=== PATIENT | male | born 1940 | race Caucasian/White ===

== ENCOUNTER 2018-05-09 15:15 | Inpatient (IN) | payer OTHER ==
[~2018-05-09] VITALS: Ht 177.8 cm; Wt 90.6 kg
[2018-05-09] MEDS ORDERED: TAMS0.4C2 PO (17:47)
[2018-05-09] MEDS ORDERED: ROSU10TA55 PO (17:47)
[2018-05-09] MEDS ORDERED: ASPI-817 PO (17:47)
[2018-05-09] MEDS ORDERED: AMLO-147 PO (17:49)
[2018-05-09] MEDS ORDERED: VIAG25 PO (17:49)
[2018-05-09] MEDS ORDERED: IRBE1TAB35 PO (17:50)
[2018-05-09] MEDS ORDERED: FUROSEMIDE 40 MG INJ IV ONE (18:30)
[2018-05-09] MEDS ORDERED: NITROGLYCERIN 2% 1 GM OINT PKT TD ONE (18:30)
[2018-05-09] MEDS ORDERED: ACETAMINOPHEN 325 MG TAB PO PRN ×2 (19:00→19:30)
[2018-05-09] MEDS ORDERED: ONDANSETRON 4 MG INJ IV PRN ×2 (19:00→19:30)
--- NOTE | 2018-05-09 19:12 | ERD ---
ER Documentation Chief Complaint Chief Complaint BIB SELF, REFERRED BY PMD FOR HTN EXACERBATION AND SOB X 2 WEEKS HPI 77-year-old male who presents the emergency room with 1 year of symptoms that include shortness of breath and peripheral edema. However over the last several weeks patient has had worsening symptoms that include PND, bilateral lower examinee edema, dyspnea on exertion only several feet. Patient is occasionally having chest discomfort. No chest discomfort currently. No fevers chills cough. ROS All systems reviewed and are negative except as per history of present illness. Medications Home Meds Reported Medications Irbesartan-Hydrochlorothiazide (Irbesartan-Hydrochlorothiazide) 300-12.5 Mg Tab, 1 EACH PO DAILY, TAB 05/09/18 Amlodipine Besylate* (Amlodipine Besylate*) 10 Mg Tablet, 10 MG PO DAILY, #30 TAB 05/09/18 Sildenafil Citrate* (Viagra*) 25 Mg Tablet, 25 MG PO DAILY, TAB TAKE 1 TAB DAILY 1HOUR BEFORE NEEDED 05/09/18 Rosuvastatin Calcium* (Crestor*) 10 Mg Tablet, 10 MG PO QHS, #30 TAB 05/09/18 Aspirin* (Aspirin* EC) 81 Mg Tablet.dr, 81 MG PO DAILY, TAB 05/09/18 Tamsulosin Hcl* (Tamsulosin Hcl*) 0.4 Mg Cap.er.24h, 0.4 MG PO HS, CAP 05/09/18 Allergies Allergies: Coded Allergies: No Known Allergy (Unverified , 05/09/18) PMhx/Soc Medical and Surgical Hx: pt denies Surgical Hx Hx Cardiac Disorders: Yes (HTN) Hx Miscellaneous Medical Probl: Yes (DM) Hx Alcohol Use: No Hx Substance Use: No Hx Tobacco Use: No Smoking Status: Never smoker FmHx Family History: No diabetes Physical Exam Vitals Vital Signs Date Temp Pulse Resp B/P (MAP) Pulse Ox O2 O2 Flow FiO2 Time Delivery Rate 05/09/18 98.5 47 23 182/75 98 Room Air 19:05 (110) 05/09/18 98.5 44 23 175/61 99 Room Air 18:24 (99) 05/09/18 48 22 196/71 99 Room Air 18:05 (112) 05/09/18 Nasal 2.0 17:45 Cannula 05/09/18 98.1 50 24 189/79 100 15:23 (115) Physical Exam General: Well developed, well nourished, no acute distress Head: Normocephalic, atraumatic. Eyes: Pupils equally reactive, EOM intact ENT: Moist mucous membranes Neck: Supple, no lymphadenopathy Respiratory: Rales at the bases bilaterally, no distress Cardiovascular: RRR, no murmurs, rubs, or gallops Abdominal: Soft, non-tender, non-distended, no peritoneal signs : Deferred MSK: Bilateral lower extremity pitting edema, no unilateral swelling, 5/5 strength Neurologic: Alert and oriented, moving all extremities, normal speech, no focal weakness, no cerebellar signs Skin: No rash Psych: Normal mood Result Diagram: 05/09/18 1737 05/09/18 1737 Results 24 hrs Laboratory Tests Test 05/09/18 17:37 White Blood Count 6.7 10^3/ul Red Blood Count 3.70 10^6/ul Hemoglobin 11.9 g/dl Hematocrit 34.4 % Mean Corpuscular Volume 93.0 fl Mean Corpuscular Hemoglobin 32.2 pg Mean Corpuscular Hemoglobin Concent 34.6 g/dl Red Cell Distribution Width 13.2 % Platelet Count 205 10^3/UL Mean Platelet Volume 9.9 fl Immature Granulocytes % 0.300 % Neutrophils % 77.7 % Lymphocytes % 14.4 % Monocytes % 6.2 % Eosinophils % 1.0 % Basophils % 0.4 % Nucleated Red Blood Cells % 0.0 /100WBC Immature Granulocytes # 0.020 10^3/ul Neutrophils # 5.2 10^3/ul Lymphocytes # 1.0 10^3/ul Monocytes # 0.4 10^3/ul Eosinophils # 0.1 10^3/ul Basophils # 0.0 10^3/ul Nucleated Red Blood Cells # 0.0 10^3/ul Prothrombin Time 12.6 Sec Prothrombin Time Ratio 1.0 INR International Normalized Ratio 0.93 Activated Partial Thromboplast Time 30.9 Sec Sodium Level 135 mmol/L Potassium Level 4.2 mmol/L Chloride Level 102 mmol/L Carbon Dioxide Level 24 mmol/L Anion Gap 9 Blood Urea Nitrogen 16 mg/dl Creatinine 0.75 mg/dl Est Glomerular Filtrat Rate mL/min mL/min Glucose Level 196 mg/dl Calcium Level 9.5 mg/dl Total Bilirubin 1.1 mg/dl Direct Bilirubin 0.00 mg/dl Indirect Bilirubin 1.1 mg/dl Aspartate Amino Transf (AST/SGOT) 30 IU/L Alanine Aminotransferase (ALT/SGPT) 37 IU/L Alkaline Phosphatase 78 IU/L Troponin I 0.024 ng/ml B-Type Natriuretic Peptide 1190 PG/ML Total Protein 7.6 g/dl Albumin 4.4 g/dl Globulin 3.20 g/dl Albumin/Globulin Ratio 1.37 Current Medications Medications Dose Sig/Georgie Start Time Status Last (Trade) Ordered Route PRN Stop Time Admin Dose Reason Admin 1 inch ONCE ONCE 05/09/18 DC 05/09/18 Nitroglycerin TD 18:30 05/09/18 18:34 18:31 (Nitroglyceri n 2% Oint) Furosemide 40 mg ONCE ONCE 05/09/18 DC 05/09/18 (Lasix) IV 18:30 05/09/18 18:33 18:31 Ondansetron 4 mg ER BRIDGE 05/09/18 HCl (Zofran PRN IV 19:00 05/10/18 Inj) NAUSEA/VOMITI 18:59 NG 650 mg ER BRIDGE 05/09/18 Acetaminophen PRN PO 19:00 05/10/18 (Tylenol .MILD PAIN 18:59 Tab) 1-3 OR TEMP IV Flush 3 ml PER 05/09/18 UNV (NS 3 ml) PROTOCOL IV 19:30 Ondansetron 4 mg Q6H PRN 05/09/18 UNV HCl (Zofran IV 19:30 Inj) NAUSEA/VOMITI NG 650 mg Q6H PRN 05/09/18 UNV Acetaminophen PO .PAIN 1-3 19:30 (Tylenol OR TEMP Tab) Enoxaparin 40 mg DAILY SC 05/10/18 UNV Sodium 09:00 (Lovenox) Procedures/MDM EKG, MONITORS, & DIAGNOSTIC IMAGING: EKG: I reviewed and interpreted a 12-lead EKG. Rhythm: Normal sinus rhythm ST Changes: No contiguous ST segment elevations T waves: No contiguous T wave inversions Impression: [No evidence of acute cardiac ischemia] Chest x-ray: I reviewed and interpreted a 1 view of the chest Mediastinum: No enlargement Cardiac silhouette: cardiomegaly Airspace: Interstitial process consistent with pulmonary edema Bones: No evidence of fracture LAB INTERPRETATION: * Elevated BNP, negative troponin MEDICAL DECISION MAKING: signs and symptoms consistent with new onset congestive heart failure likely secondary to poorly controlled Hypertension. The patient's blood pressure is regularly in the 180s per family members. This is a subacute and chronic issue however the patient's CHF type symptoms are worse in the last several weeks. He is having chest pain as well. Inpatient hospitalization for volume management, echocardiogram and initiation of medications as needed for CHF diagnosis. ER COURSE: * Patient was given aspirin, nitroglycerin, Lasix no indication for nitro drip, positive pressure ventilation. * Patient is hemodynamically stable at this time. Avoid rapidly lowering the patient's blood pressure given chronicity of hypertension CONSULTATION: [None] DISPOSITION PLAN: Accepting care team and consultations: I discussed the current laboratory data, diagnostic imaging and emergency care provided. Admitting team: Dr. Goddard Admitting team indication: Insurance directed Departure Diagnosis: Primary Impression: New onset of congestive heart failure Additional Impression: Hypertensive urgency Condition: Stable EARL LEE MD May 09, 2018 19:12
--- NOTE | 2018-05-09 19:23 | HP ---
Date/Time of Note Date/Time of Note DATE: 05/09/18 TIME: 19:12 Assessment/Plan VTE Prophylaxis SCD applied (from Nsg): Yes Pharmacological prophylaxis: NA/contraindicated Pharm contraindication: low risk/ambulating Lines/Catheters IV Catheter Type (from Nrsg): Saline Lock Assessment/Plan Assessment/Plan 77 yo man history of HTN presents with dyspnea, new onset CHF and complete heart block. #New onset CHF #HTN #Dyspnea - Hypertensive to 190s systolic - Fluid overloaded on exam with elevated BNP. However no significant pulmonary edema. - Continue oral antihypertensives, titrate up - prn hydralazine - IV diuresis with lasix 40 BID - Will check echo - Consult Dr. Copeland #Complete heart block #Right bundle branch block - Continue current dose of AV node blockers but will not add more and not titrate up. - Consult Dr. Copeland. DVT: SCDs GI: None Result Diagram: 05/09/18173605/09/181736 HPI/ROS Admit Date/Time Admit Date/Time May 09, 2018 Hx of Present Illness Mr. Garcia is a 77 yo man with history of HTN who presents with dyspnea. He was in his usual state of health until about the last two months when he noticed gradual progressive onset dyspnea on exertion. This has worsened and today he was unable to catch his breath at rest, so he presented to the ED. He also reports chronic aching low back pain with ambulation. He has had hypertension for several years and reports compliance with all meds. Never been hospitalized, no known heart problems. In the ED he was afebrile. BP 196/71, P 50s, sat 99% RA. EKG showed complete heart block, atrial rate 150s, ventricular rate 50s. BNP 1100. Trop 0.024. ROS Denies fever, chills, weight loss, night sweats, headache, vision changes, dysphagia, PND, orthopnea, cough, chest pain/pressure/palpitations, nausea, vomiting, abdominal pain, diarrhea, constipation, dysuria, hematuria, LE edema. PMH/Family/Social Past Medical History HTN erectile dysfunction dyslipidemia Medications Current Medications Ondansetron HCl (Zofran Inj) 4 mg ER BRIDGE PRN IV NAUSEA/VOMITING; Start 05/09 at 19:00; Stop 05/10/18 at 18:59 Acetaminophen (Tylenol Tab) 650 mg ER BRIDGE PRN PO .MILD PAIN 1-3 OR TEMP; Start 05/09/18 at 19:00; Stop 05/10/18 at 18:59 IV Flush (NS 3 ml) 3 ml PER PROTOCOL IV ; Start 05/09/18 at 19:30; Status UNV Ondansetron HCl (Zofran Inj) 4 mg Q6H PRN IV NAUSEA/VOMITING; Start 05/09/18 at 19:30; Status UNV Acetaminophen (Tylenol Tab) 650 mg Q6H PRN PO .PAIN 1-3 OR TEMP; Start 05/09/18 at 19:30; Status UNV Enoxaparin Sodium (Lovenox) 40 mg DAILY SC ; Start 05/10/18 at 09:00; Status UNV Amlodipine Besylate (Norvasc) 10 mg DAILY PO ; Start 05/10/18 at 09:00; Status UNV Aspirin (Halfprin) 81 mg DAILY PO ; Start 05/10/18 at 09:00; Status UNV Tamsulosin HCl (Flomax) 0.4 mg HS PO ; Start 05/09/18 at 21:00; Status UNV Miscellaneous Information 1 each DAILY PO ; Start 05/10/18 at 09:00; Status UNV Miscellaneous Information 10 mg QHS PO ; Start 05/09/18 at 21:00; Status UNV Furosemide (Lasix) 40 mg BID DIURETICS IV ; Start 05/09/18 at 19:30; Status UNV Coded Allergies: No Known Allergy (Unverified , 05/09/18) Past Surgical History Denies Social History Lives in house with son. [place]. Alcohol Use: occasionally (4-5 tequila shots per week) Smoking Status: Never smoker Drug Use: none Exam/Review of Systems Vital Signs Vitals Vital Signs Date Temp Pulse Resp B/P (MAP) Pulse Ox O2 O2 Flow FiO2 Time Delivery Rate 05/09/18 98.5 47 23 182/75 98 Room Air 19:05 (110) 05/09/18 2.0 17:45 Exam Exam Gen: Obese man slightly tachypneic on room air otherwise in no distress. Eyes: PERRL, no icterus. HEENT: Clear oropharynx, moist mucous membranes. Rhinophyma. Neck: Cannot appreciate JV. No lymphadenopathy Card: Darius, no murmurs appreciated Pulm: Clear to auscultation bilaterally. Abd: Soft, nontender, nondistended. Ext: No cyanosis/clubbing/edema Skin: warm, dry, well perfused KAYLAN GOMEZ MD May 09, 2018 19:23
[2018-05-09] MEDS ORDERED: hydrALAzine 20 MG INJ IV PRN (19:30)
[2018-05-09] MEDS ORDERED: ASPIRIN 81 MG TAB PO ONE (19:30)
[2018-05-09] MEDS ORDERED: NACL 0.9% 3 ML SYG IV SCH (19:30)
[2018-05-09 20:30] VITALS: BP 192/89; PULSE 47; RESP 19
[2018-05-09 20:35] VITALS: BP 185/95; PULSE 47
[2018-05-09] MEDS ORDERED: ROSUVASTATIN 10 MG TAB PO SCH (21:00)
[2018-05-09] MEDS: ATORVASTATIN 40 MG TAB PO SCH ×2 (22:18→22:29)
[2018-05-09] MEDS: FUROSEMIDE 40 MG INJ IV SCH (22:18)
[2018-05-09] MEDS: TAMSULOSIN (SR) 0.4 MG CAP PO SCH ×2 (22:18→22:29)
[2018-05-09 23:06] VITALS: Ht 177.8 cm; Wt 90.6 kg
[2018-05-09 23:51] VITALS: BP 151/68; PULSE 50; RESP 19
[2018-05-10] VITALS (12 sets, daily range): BP systolic 127–199; BP diastolic 58–81; PULSE 43–75; RESP 16–20
[2018-05-10] MEDS ORDERED: ATROPINE 1 MG/10 ML SYRINGE IV ONE (03:00)
[2018-05-10] MEDS: FUROSEMIDE 40 MG INJ IV SCH ×2 (06:32→17:59)
[2018-05-10] MEDS: AMLODIPINE 10 MG TAB PO SCH (08:26)
[2018-05-10] MEDS: ASPIRIN (EC) 81 MG TAB PO SCH (08:26)
[2018-05-10] MEDS ORDERED: NON-FORMULARY/PATIENT OWN MED (Irbesartan-Hydrochlorothiazide 1 EACH) PO SCH (09:00)
[2018-05-10] MEDS ORDERED: HYDROCHLOROTHIAZIDE 12.5 MG CAP PO SCH (09:30)
[2018-05-10] MEDS: ENOXAPARIN 40 MG/0.4 ML SYG SC SCH (09:37)
[2018-05-10] MEDS: LOSARTAN 50 MG TAB PO SCH (10:39)
--- NOTE | 2018-05-10 16:04 | CONS ---
DATE OF ADMISSION: 05/09/2018 DATE OF CONSULTATION: 05/10/2018 TYPE OF CONSULTATION: Cardiology. REASON FOR CONSULTATION: Heart block, shortness of breath. REQUESTING PHYSICIAN: Kaylan Goddard MD, from the hospitalist service. HISTORY OF PRESENT ILLNESS: Mr. Richards is a very pleasant 77-year-old male with a histor y of hypertension, dyslipidemia, BPH, diabetes mellitus, who presented with complaints of dyspnea on exertion times approximately 2 weeks. Additionally, the patient complains of mild lower extremity ed kya and possible occasional chest pain. Upon arrival, temperature of 98.1, blood pressure 189/79, pu lse 50, respiratory rate 24, satting 100%. The patient's labs were notable for a sodium of 135, pota ssium 4.2, creatinine 0.75, BUN of 16, AST 30, ALT 37. Troponin negative. BNP of 1190. TSH of 3.0. INR 0.93. The patient underwent a chest x-ray revealing no acute cardiopulmonary abnormalities. T he patient's electrocardiogram revealed a borderline sinus tachycardia with episodes of 2:1 AV block and possible episodes of complete heart block additionally with likely a junctional escape around 50 with a right bundle branch block pattern secondary repolarization abnormalities and left anterior fas cicular block. The patient was subsequently admitted to the floor and since admit to floor has had s ome decreasing heart rates down to the low 40s and possibly even high 30s. The patient continues to have significantly elevated systolic blood pressures as high as 190. The patient denies chest pain a t this time. PAST MEDICAL HISTORY: As above in HPI with the patient is denying any previous history of syncope an d dizziness. MEDICATIONS CURRENTLY IN HOSPITAL; 1. Losartan 100 mg daily. 2. Hydrochlorothiazide 12.5 mg daily. 3. Lovenox 40 mg subcutaneous daily. 4. Norvasc 10 mg daily. 5. Aspirin 81 mg daily. 6. Flomax 0.4 mg at bedtime. 7. Lipitor 40 mg at bedtime. 8. Zofran p.r.n. 9. Tylenol p.r.n. 10. Lasix 40 mg IV b.i.d. 11. Hydralazine 10 mg IV push q.4 p.r.n. ALLERGIES: NO KNOWN DRUG ALLERGIES. SOCIAL HISTORY: No current tobacco, quit x40 years. Positive EtOH. No illicit drug use. FAMILY HISTORY: No history of sudden cardiac or early CAD. REVIEW OF SYSTEMS: As above in HPI. CONSTITUTIONAL: No fevers, chills. PULMONARY: Shortness of breath. CARDIOVASCULAR: No current chest pain, but chest pain reported on admit. GASTROINTESTINAL: No vomiting. GENITOURINARY: No hematuria. MUSCULOSKELETAL: Degenerative joint disease. PSYCHIATRIC: The patient denies depression. NEUROLOGIC: No documented history of CVA. ENDOCRINE: No documented history of diabetes mellitus. PHYSICAL EXAMINATION: VITAL SIGNS: Temperature of 98.6, blood pressure 189/81, pulse 56, respiratory rate 16, satting 96%. GENERAL: The patient is alert, awake, in no acute distress. NECK: JVP is approximately 8 to 9 cm of water. CHEST: Decreased breath sounds at bases bilaterally. HEART: Bradycardic, regular rhythm, normal S1, S2, I/ systolic murmur. ABDOMEN: Positive bowel sounds, soft. EXTREMITIES: No significant pitting edema, 1+ pulses bilateral posterior tibial. LABORATORIES: Most recently from today, sodium 136, potassium 3.7, creatinine 0.8, BUN 15. LDL 167, HDL 40. Troponin negative x3. IMAGING STUDIES: As above in HPI. No further imaging studies for my review at this time. ELECTROCARDIOGRAM: As above in HPI. No further electrocardiograms for my review at this time. IMPRESSION: 1. Heart block with a subsequent likely symptomatic bradycardia with episodes of 2:1 atrioventricula r block and then additionally likely associated complete heart block at times as well with likely sierra ctional escape rhythm around 50 to the 40s. 2. Shortness of breath, dyspnea on exertion, likely due to chronotropic incompetence and heart block . 3. Chest pain, assess for acute coronary syndrome. 4. Hypertension, severely elevated, uncontrolled. 5. Benign prostatic hypertrophy. 6. Elevated BNP. Assess for congestive heart failure. 7. Anemia. RECOMMENDATIONS: 1. At this time, we would maintain the patient on telemetry monitoring to follow rhythm and rate con trol closely. 2. We would continue the patient's antihypertensives with losartan, Norvasc, hydrochlorothiazide and we will add additionally vasodilating medications with hydralazine standing. 3. Avoid any reyna agents given bradycardia. 4. We will check a 2D echo for this patient's ejection fraction, wall motion or any major valve abno rmalities. 5. The patient is status post a negative troponin x3, ruling out for acute myocardial infarction. 6. Consider stress testing in this patient, although not likely etiology of patient's heart block as he has evidence of conduction system disease on EKG previously. 7. Probable need for permanent pacemaker implantation. We will follow rhythm and improve blood pres sure and assess the patient's ongoing symptomatology as well as ongoing heart block. Thank you for allowing me to take part in the care of this patient. I will continue to follow him ve ry closely with you with further recommendations to be made as the [facility]. Dictated By: KAYLAN LAZAR/ROZINA Conf#: [id number] DID#: [id number] CC: KAYLAN GODDARD MD;*End*
--- NOTE | 2018-05-10 17:37 | PN ---
Date/Time of Note Date/Time of Note DATE: 05/10/18 TIME: 17:31 Assessment/Plan VTE Prophylaxis Risk score (from Ns)>0 risk: 5 SCD applied (from Ns): No SCD contraindicated: other (not contraindicated) Pharmacological prophylaxis: LMWH Lines/Catheters [facility] Saline Lock Urinary Cath still in place: No Assessment/Plan Assessment/Plan 77 yo man history of HTN presents with dyspnea, new onset CHF and complete heart block. #New onset CHF #HTN #Dyspnea - Hypertensive to 190s systolic - Fluid overloaded on exam with elevated BNP. However no significant pulmonary edema. - Continue oral antihypertensives, titrate up - prn hydralazine - IV diuresis with lasix 80 BID - Will check echo - Consulted Dr. Copeland #Complete heart block #Right bundle branch block - Stopping beta blockers - Consult Dr. Copeland. - May require PPM DVT: SCDs GI: None Result Diagram: 05/10/18 0559 05/10/18 0559 Subjective 24 Hr Interval Summary Free Text/Dictation No acute overnight events. Still with mild shortness of breath. [id number] at bedside, I updated them with the plan. On tele, remains in complete heart block with ventricular rate 40s-50s. Exam/Review of Systems Exam Vitals Vital Signs Date Temp Pulse Resp B/P (MAP) Pulse Ox O2 O2 Flow FiO2 Time Delivery Rate 05/10/18 43 16:47 05/10/18 98.5 17 180/78 98 15:26 (112) 05/10/18 Room Air 03:37 05/09/18 2.0 17:45 Intake and Output 05/09/18 05/09/18 05/10/18 1515:00 23:00 07:00 IntakeIntake Total 540 ml OutputOutput Total 900 ml BalanceBalance -360 ml Exam Gen: Obese man slightly tachypneic on room air otherwise in no distress. Eyes: PERRL, no icterus. HEENT: Clear oropharynx, moist mucous membranes. Rhinophyma. Neck: Cannot appreciate JV. No lymphadenopathy Card: Adrius, no murmurs appreciated Pulm: Clear to auscultation bilaterally. Abd: Soft, nontender, nondistended. Ext: No cyanosis/clubbing/edema Skin: warm, dry, well perfused Medications Medication Current Medications IV Flush (NS 3 ml) 3 ml PER PROTOCOL IV ; Start 05/09/18 at 19:30 Ondansetron HCl (Zofran Inj) 4 mg Q6H PRN IV NAUSEA/VOMITING; Start 05/09/18 at 19:30 Acetaminophen (Tylenol Tab) 650 mg Q6H PRN PO .PAIN 1-3 OR TEMP; Start 05/09/18 at 19:30 Enoxaparin Sodium (Lovenox) 40 mg DAILY SC Last administered on 05/10/18 09:37; Admin Dose 40 MG; Start 05/10/18 at 09:00 Amlodipine Besylate (Norvasc) 10 mg DAILY PO Last administered on 05/10/18 08:26; Admin Dose 10 MG; Start 05/10/18 at 09:00 Aspirin (Halfprin) 81 mg DAILY PO Last administered on 05/10/18 08:26; Admin Dose 81 MG; Start 05/10/18 at 09:00 Tamsulosin HCl (Flomax) 0.4 mg HS PO Last administered on 05/09/18 22:29; Admin Dose 0.4 MG; Start 05/09/18 at 21:00 Hydralazine HCl (Apresoline) 10 mg Q4H PRN IV SBP>190 Last administered on 05/10/18 08:30; Admin Dose 10 MG; Start 05/09/18 at 19:30 Atorvastatin Calcium (Lipitor) 40 mg DAILY@21 PO Last administered on 05/09/18 22:29; Admin Dose 40 MG; Start 05/09/18 at 21:00 Influenza Virus Vaccine Quadrival (Fluzone) 0.5 ml ONCE ONCE IM* ; Start 05/11/18 at 10:00; Stop 05/11/18 at 10:01 Losartan Potassium (Cozaar) 100 mg DAILY PO Last administered on 05/10/18 10:39; Admin Dose 100 MG; Start 05/10/18 at 09:30 Hydrochlorothiazide (Hydrochlorothiazide) 25 mg DAILY PO ; Start 05/11/18 at 09:00 Hydralazine HCl (Apresoline) 50 mg Q8 PO Last administered on 05/10/18 16:06; Admin Dose 50 MG; Start 05/10/18 at 15:30 Furosemide (Lasix) 80 mg BID DIURETICS IV ; Start 05/10/18 at 18:00 KAYLAN GOMEZ MD May 10, 2018 17:37
--- NOTE | 2018-05-10 18:33 | RADRPT ---
Echocardiogram Report Patient Name: AGUSTINA MARTINatipage ID: [id number] : 1940 (77y 5m)Study Date: 05/10/2018 8:31:12 AM Gender: MAccession #: [id number] Tech: Oli Smith [facility] Location: 1-A Ref.Physician: KAYLAN GOMEZ Height(Cm): BSA: Weight(Kg): Quality: AdequateAccount #: Procedures: Echocardiographic Report: Transthoracic echocardiogram with complete 2D, M-Mode, and doppler examination. Indications: New Congestive Heart Failure. Measurements: 2D/M Mode Doppler Measurement Value Normal Range Measurement Value Normal Range LVIDd 2D 4.0 [ 4.2 - 5.8 ] cm RENAN Vmax 2.3 [ 2.0 - 4.0 ] cm2 LVIDs 2D 2.9 [ 2.5 - 4.0 ] cm RENAN VTI 2.4 [ 2.0 - 4.0 ] cm2 LVPWd 2D 1.7 [ 0.6 - 1.0 ] cm AV Mean Diego 1.4 [ 70.0 - 90.0 ] cm/sec IVSd 2D 1.8 [ 0.6 - 1.0 ] cm AV Mean PG 9.0 [ 2.0 - 4.0 ] mmHg IVS/LVPW 2D 1.1 ratio AV Peak Diego 2.3 [ 100.0 - 170.0 ] cm/sec AoR Diam 2D 3.4 [ 2.6 - 3.4 ] cm AV Peak PG 22.0 [ 2.0 - 9.0 ] mmHg LA/Ao 2D 1 ratio AV VTI 48.8 cm LA Dimen 2D 4.7 [ 3.0 - 4.0 ] cm LVOT Mean Diego 1.0 [ 60.0 - 80.0 ] cm/sec LVOT Diam 2.0 [ 2.3 - 2.9 ] cm LVOT Mean PG 5.0 [ 1.0 - 3.0 ] mmHg LVOT Area 3.1 cm2 LVOT Peak Diego 1.7 [ 70.0 - 110.0 ] cm/sec LVOT Peak PG 12.0 [ 2.0 - 6.0 ] mmHg LVOT VTI 37.4 [ 20.0 - 30.0 ] cm MV E Peak Diego 1.9 [ 60.0 - 130.0 ] cm/sec MV A Peak Diego 2.2 [ 100.0 - 120.0 ] cm/sec MV E/A 0.9 [ 0.8 - 1.5 ] ratio MV Decel Time 317 [ 104 - 258 ] msec MV E/A 0.9 [ 0.8 - 1.5 ] ratio TR Peak Diego 3.0 [ 100.0 - 280.0 ] cm/sec TR Peak PG 37.0 mmHg RVSP 40.0 [ 10.0 - 36.0 ] mmHg Findings: Left Ventricle: Normal left ventricular systolic function. Normal left ventricular cavity size. Severe concentric left ventricular hypertrophy. Ejection fraction is visually estimated at 65 %. Right Ventricle: Normal right ventricular size. Normal right ventricular systolic function. Left Atrium: There is moderate enlargement of left atrium. Right Atrium: The right atrium is normal in size. Mitral Valve: Moderate mitral leaflet calcification. Moderate mitral annular calcification. Trace mitral regurgitation. Mild to moderate mitral stenosis. Mitral valve Max Velocity 2.51 m/sec. MaxPG 25.00 mmHg. MeanPG 8.00 mmHg. Mitral Valve Area by PHT 2.20 cm2. Aortic Valve: No significant aortic stenosis or insufficiency. Aortic sclerosis without significant stenosis. Tricuspid Valve: Normal appearance of the tricuspid valve. Estimated peak PA systolic pressure 40 mmHg. There is mild tricuspid regurgitation. Pulmonic Valve: Pulmonic valve not well visualized. There is trace pulmonic regurgitation. Pericardium: Normal pericardium with no significant pericardial effusion. Aorta: Normal aortic root. IVC: Normal size and normal respiratory collapse consistent with normal right atrial pressure. Conclusions: Normal left ventricular systolic function. Normal left ventricular cavity size. Severe concentric left ventricular hypertrophy. Ejection fraction is visually estimated at 65 %. There is moderate enlargement of left atrium. Moderate mitral leaflet calcification. Moderate mitral annular calcification. Trace mitral regurgitation. Mild to moderate mitral stenosis. Mitral valve Max Velocity 2.51 m/sec. MaxPG 25.00 mmHg. MeanPG 8.00 mmHg. Mitral Valve Area by PHT 2.20 cm2. Normal appearance of the tricuspid valve. Estimated peak PA systolic pressure 40 mmHg. There is mild tricuspid regurgitation. Pulmonic valve not well visualized. There is trace pulmonic regurgitation. Electronically Signed By: Kaylan Copeland 2018-05-10 18:32:52 PST
[2018-05-10] MEDS: TAMSULOSIN (SR) 0.4 MG CAP PO SCH (20:37)
[2018-05-10] MEDS: ATORVASTATIN 40 MG TAB PO SCH (20:37)
[2018-05-11] VITALS (10 sets, daily range): BP systolic 103–174; BP diastolic 47–74; PULSE 42–51; RESP 18–22
[2018-05-11] MEDS: FUROSEMIDE 40 MG INJ IV SCH (06:09)
[2018-05-11] MEDS: LOSARTAN 50 MG TAB PO SCH (08:53)
[2018-05-11] MEDS: AMLODIPINE 10 MG TAB PO SCH (08:53)
[2018-05-11] MEDS: ASPIRIN (EC) 81 MG TAB PO SCH (08:54)
[2018-05-11] MEDS: ENOXAPARIN 40 MG/0.4 ML SYG SC SCH (09:00)
[2018-05-11] MEDS ORDERED: HYDROCHLOROTHIAZIDE 25 MG TAB PO SCH (09:00)
--- NOTE | 2018-05-11 11:52 | PN ---
Date/Time of Note Date/Time of Note DATE: 05/11/18 TIME: 11:48 Assessment/Plan VTE Prophylaxis Risk score (from Ns)>0 risk: 4 SCD applied (from Ns): No SCD contraindicated: low risk/ambulating Pharmacological prophylaxis: LMWH Lines/Catheters IV Catheter Type (from Nrs): Saline Lock Urinary Cath still in place: No Assessment/Plan Assessment/Plan 77 yo man history of HTN presents with dyspnea, new onset CHF and complete heart block. #New onset CHF #HTN #Dyspnea - Hypertensive to 190s systolic - Now euvolemic s/p diuresis. Stopping lasix - Still very hypertensive. Will continue to hold beta emelia, continue to titrate up hydralazine, norvasc (max), HCTZ. Added isosorbide. - prn hydralazine - echo 60-65%, no wall motion abnormalities - Consulted Dr. Copeland #ARPITA - May be due to overaggressive diuresis - Will hold ARB/ACEi - Repeat in AM. #Complete heart block #Right bundle branch block - Stopped beta blockers - Consult Dr. Copeland. - Escape rate is persistently >40. No urgency for PPM this admission. DVT: SCDs GI: None Dispo: Monitor antoher 24-48 hours in the setting of ARPITA and uncontrollable HTN. Result Diagram: 05/11/18 1025 05/11/18 1025 Subjective 24 Hr Interval Summary Free Text/Dictation No acute overnight events. Patient reports SOB is improving; now ambulatory in the hallways. Exam/Review of Systems Exam Vitals Vital Signs Date Temp Pulse Resp B/P (MAP) Pulse Ox O2 O2 Flow FiO2 Time Delivery Rate 05/11/18 97.9 49 18 173/74 94 11:26 (107) 05/10/18 Room Air 03:37 05/09/18 2.0 17:45 Intake and Output 05/10/18 05/10/18 05/11/18 1515:00 23:00 07:00 IntakeIntake Total 400 ml 120 ml OutputOutput Total 700 ml 900 ml BalanceBalance -300 ml -780 ml Exam Gen: Obese man breathing comfortably on room air otherwise in no distress. Eyes: PERRL, no icterus. HEENT: Clear oropharynx, moist mucous membranes. Rhinophyma. Neck: Cannot appreciate JV. No lymphadenopathy Card: Darius, no murmurs appreciated Pulm: Clear to auscultation bilaterally. Abd: Soft, nontender, nondistended. Ext: No cyanosis/clubbing/edema Skin: warm, dry, well perfused Medications Medication Current Medications IV Flush (NS 3 ml) 3 ml PER PROTOCOL IV ; Start 05/09/18 at 19:30 Ondansetron HCl (Zofran Inj) 4 mg Q6H PRN IV NAUSEA/VOMITING; Start 05/09/18 at 19:30 Acetaminophen (Tylenol Tab) 650 mg Q6H PRN PO .PAIN 1-3 OR TEMP; Start 05/09/18 at 19:30 Enoxaparin Sodium (Lovenox) 40 mg DAILY SC Last administered on 05/11/18 09:00; Admin Dose 40 MG; Start 05/10/18 at 09:00 Amlodipine Besylate (Norvasc) 10 mg DAILY PO Last administered on 05/11/18 08:53; Admin Dose 10 MG; Start 05/10/18 at 09:00 Aspirin (Halfprin) 81 mg DAILY PO Last administered on 05/11/18 08:54; Admin Dose 81 MG; Start 05/10/18 at 09:00 Tamsulosin HCl (Flomax) 0.4 mg HS PO Last administered on 05/10/18 20:37; Admin Dose 0.4 MG; Start 05/09/18 at 21:00 Hydralazine HCl (Apresoline) 10 mg Q4H PRN IV SBP>190 Last administered on 05/10/18 08:30; Admin Dose 10 MG; Start 05/09/18 at 19:30 Atorvastatin Calcium (Lipitor) 40 mg DAILY@21 PO Last administered on 05/10/18 20:37; Admin Dose 40 MG; Start 05/09/18 at 21:00 Losartan Potassium (Cozaar) 100 mg DAILY PO Last administered on 05/11/18 08:53; Admin Dose 100 MG; Start 05/10/18 at 09:30; Status Hold Hydralazine HCl (Apresoline) 100 mg Q8 PO ; Start 05/11/18 at 14:00 Hydrochlorothiazide (Hydrochlorothiazide) 50 mg DAILY PO ; Start 05/12/18 at 09:00; Status KAYLAN BOB MD May 11, 2018 11:52
--- NOTE | 2018-05-11 13:04 | CONS ---
Assessment/Plan Assessment/Plan Hospital Course (Demo Recall) IMPRESSION: 1. Heart block with a subsequent likely symptomatic bradycardia with episodes of 2:1 atrioventricular block and then additionally likely associated complete heart block at times as well with likely junctional escape rhythm around 50 to the 40s. 2. Shortness of breath, dyspnea on exertion, likely due to chronotropic incompetence and heart block. NLl EF by echo 60-65% 3. Chest pain, assess for acute coronary syndrome.-resolved. Neg trop x 3 4. Hypertension-remains elevated 5. Benign prostatic hypertrophy. 6. Elevated BNP. Assess for congestive heart failure. 7. Anemia. 8. ARF-likley due to overdiuresis Recc: -Tele -Follow HR closely. No reyna agents -Spoke with patient/family about PPM which they say they would like to avoid as possible and use only as last resort. Thus as currently no syncope/dizziness/actually elevated BP will continue to follow -Agree with uptitrate of antihypertensives to improve HR control - Agree with d/c of lasix and follow isolation washer/volume status with possible need for even gentle hydration -Continue asa/statin -Continue hydralazine/imdur Consultation Date/Type/Reason Admit Date/Time May 09, 2018 at 18:42 Initial Consult Date 05/09/18 Type of Consult Cardiology Reason for Consultation heart block Requesting Provider: KAYLAN GOMEZ MD Date/Time of Note DATE: 05/11/18 TIME: 12:55 Exam/Review of Systems Vital Signs Vitals Vital Signs Date Temp Pulse Resp B/P (MAP) Pulse Ox O2 O2 Flow FiO2 Time Delivery Rate 05/11/18 46 12:16 05/11/18 97.9 18 173/74 94 11:26 (107) 05/10/18 Room Air 03:37 05/09/18 2.0 17:45 Intake and Output 05/10/18 05/10/18 05/11/18 1414:59 22:59 06:59 IntakeIntake Total 400 ml 120 ml OutputOutput Total 700 ml 900 ml BalanceBalance -300 ml -780 ml Exam Exam Review of Systems: CONSTITUTIONAL: No fevers, chills. PULMONARY: No sob CARDIOVASCULAR: No chest pain/palpitations GASTROINTESTINAL: No nausea/vomiting. GENITOURINARY: No hematuria/dysuria. MUSCULOSKELETAL: No myagias/arthalgias. PSYCHIATRIC: The patient denies depression. NEUROLOGIC: No weakness Constitutional: alert, oriented Psych: no complaints Head: normocephalic ENMT: mucosa pink and moist Neck: supple, jvd (9 cm water) Respiratory: diminished breath sounds Cardiovascular: other (bradycardic) Gastrointestinal: soft, non-tender Musculoskeletal: muscle tone (normal) Extremities: edema (none) 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: other (No focal deficits) Labs Result Diagram: 05/11/18 1025 05/11/18 1025 Results 24hrs Laboratory Tests Test 05/11/18 10:25 White Blood Count 5.4 Red Blood Count 3.74 L Hemoglobin 12.0 L Hematocrit 34.0 L Mean Corpuscular Volume 90.9 Mean Corpuscular Hemoglobin 32.1 Mean Corpuscular Hemoglobin Concent 35.3 Red Cell Distribution Width 13.2 Platelet Count 208 Mean Platelet Volume 9.9 Immature Granulocytes % 0.200 Neutrophils % 74.9 Lymphocytes % 14.9 L Monocytes % 7.0 Eosinophils % 2.6 Basophils % 0.4 Nucleated Red Blood Cells % 0.0 Immature Granulocytes # 0.010 Neutrophils # 4.1 Lymphocytes # 0.8 Monocytes # 0.4 Eosinophils # 0.1 Basophils # 0.0 Nucleated Red Blood Cells # 0.0 Sodium Level 135 Potassium Level 3.6 Chloride Level 96 L Carbon Dioxide Level 26 Anion Gap 13 # Blood Urea Nitrogen 25 H Creatinine 1.72 H Est Glomerular Filtrat Rate mL/min Glucose Level 195 Calcium Level 9.3 Phosphorus Level 5.9 H Magnesium Level 1.8 Medications Medications Current Medications IV Flush (NS 3 ml) 3 ml PER PROTOCOL IV ; Start 05/09/18 at 19:30 Ondansetron HCl (Zofran Inj) 4 mg Q6H PRN IV NAUSEA/VOMITING; Start 05/09/18 at 19:30 Acetaminophen (Tylenol Tab) 650 mg Q6H PRN PO .PAIN 1-3 OR TEMP; Start 05/09/18 at 19:30 Enoxaparin Sodium (Lovenox) 40 mg DAILY SC Last administered on 05/11/18at 09:00; Admin Dose 40 MG; Start 05/10/18 at 09:00 Amlodipine Besylate (Norvasc) 10 mg DAILY PO Last administered on 05/11/18at 08:53; Admin Dose 10 MG; Start 05/10/18 at 09:00 Aspirin (Halfprin) 81 mg DAILY PO Last administered on 05/11/18 08:54; Admin Dose 81 MG; Start 05/10/18 at 09:00 Tamsulosin HCl (Flomax) 0.4 mg HS PO Last administered on 05/10/18 20:37; Admin Dose 0.4 MG; Start 05/09/18 at 21:00 Hydralazine HCl (Apresoline) 10 mg Q4H PRN IV SBP>190 Last administered on 05/10/18 08:30; Admin Dose 10 MG; Start 05/09/18 at 19:30 Atorvastatin Calcium (Lipitor) 40 mg DAILY@21 PO Last administered on 05/10/18 20:37; Admin Dose 40 MG; Start 05/09/18 at 21:00 Losartan Potassium (Cozaar) 100 mg DAILY PO Last administered on 05/11/18 08:53; Admin Dose 100 MG; Start 05/10/18 at 09:30; Status Hold Hydralazine HCl (Apresoline) 100 mg Q8 PO ; Start 05/11/18 at 14:00 Hydrochlorothiazide (Hydrochlorothiazide) 50 mg DAILY PO ; Start 05/12/18 at 09:00 Isosorbide Mononitrate (Ismo) 40 mg DAILY PO ; Start 05/11/18 at 12:30 KAYLAN ARGUETA May 11, 2018 13:04
[2018-05-11] MEDS: ISOSORBIDE MONONITRATE 20 MG TAB PO SCH (13:59)
[2018-05-11] MEDS: ATORVASTATIN 40 MG TAB PO SCH (21:14)
[2018-05-11] MEDS: TAMSULOSIN (SR) 0.4 MG CAP PO SCH (21:15)
[2018-05-12] VITALS (9 sets, daily range): BP systolic 108–152; BP diastolic 53–68; PULSE 45–53; RESP 18
[2018-05-12] MEDS: ASPIRIN (EC) 81 MG TAB PO SCH (08:13)
[2018-05-12] MEDS: ISOSORBIDE MONONITRATE 20 MG TAB PO SCH (08:13)
[2018-05-12] MEDS: AMLODIPINE 10 MG TAB PO SCH (08:14)
[2018-05-12] MEDS ORDERED: HYDROCHLOROTHIAZIDE 25 MG TAB PO SCH (09:00)
--- NOTE | 2018-05-12 09:00 | CONS ---
Assessment/Plan Assessment/Plan Assessment/Plan (Daily) 1. acute kidney injury possible due to Overdiuresis + nephrotoxicity 2. new onset CHF 3. Hyponatremia due to CHF 4. H/o HTN Plan: Stop IV lasix, Stop losartan and stop HCTZ urine na, urine prot/cr ratio, Urine Eosinophils, CK total, Uric acid Renal US to assess for CKD Amlodipine 10mg po daily, with Hydralazine 100mg pO Q 8 hr , IV hydralazine prn Cardiology following Thanks for consultation, I will continue to follow up Consultation Date/Type/Reason Admit Date/Time May 09, 2018 at 18:42 Date of Consultation: May 12, 2018 Type of Consult NEPHROLOGY Reason for Consultation Acute Renal failure Requesting Provider: KAYLAN GOMEZ MD Date/Time of Note DATE: 05/12/18 TIME: 08:59 Hx of Present Illness 77 yo man history of HTN presents with dyspnea, new onset CHF and complete heart block.pt was hypertensive and fluid overloaded on admission seen by cardiology diuresed with IV lasix 40 BID, Also continues to received HCTZ and Losartan On admission BUN/Cr 16/0.75 which bumped to 34/2.59, Na 134- Renal has been consulted for Acute kidney injury, HYponatremia. Constitutional: no complaints, poor po Eyes: no complaints ENT: no complaints Respiratory: pleuritic pain, shortness of breath Cardiovascular: no complaints Gastrointestinal: no complaints Genitourinary: no complaints Musculoskeletal: no complaints Skin: no complaints Neurologic: no complaints Endocrine: no complaints Lymphatic: no complaints Psychological: no complaints Immunologic: no complaints Past Medical History Medical History: hypertension Home Meds Reported Medications Irbesartan-Hydrochlorothiazide (Irbesartan-Hydrochlorothiazide) 300-12.5 Mg Tab, 1 EACH PO DAILY, TAB 05/09/18 Amlodipine Besylate* (Amlodipine Besylate*) 10 Mg Tablet, 10 MG PO DAILY, #30 TAB 05/09/18 Sildenafil Citrate* (Viagra*) 25 Mg Tablet, 25 MG PO DAILY, TAB TAKE 1 TAB DAILY 1HOUR BEFORE NEEDED 05/09/18 Rosuvastatin Calcium* (Crestor*) 10 Mg Tablet, 10 MG PO QHS, #30 TAB 05/09/18 Aspirin* (Aspirin* EC) 81 Mg Tablet.dr, 81 MG PO DAILY, TAB 05/09/18 Tamsulosin Hcl* (Tamsulosin Hcl*) 0.4 Mg Cap.er.24h, 0.4 MG PO HS, CAP 05/09/18 Medications Current Medications IV Flush (NS 3 ml) 3 ml PER PROTOCOL IV ; Start 05/09/18 at 19:30 Ondansetron HCl (Zofran Inj) 4 mg Q6H PRN IV NAUSEA/VOMITING; Start 05/09/18 at 19:30 Acetaminophen (Tylenol Tab) 650 mg Q6H PRN PO .PAIN 1-3 OR TEMP; Start 05/09/18 at 19:30 Amlodipine Besylate (Norvasc) 10 mg DAILY PO Last administered on 05/12/18 08:14; Admin Dose 10 MG; Start 05/10/18 at 09:00 Aspirin (Halfprin) 81 mg DAILY PO Last administered on 05/12/18 08:13; Admin Dose 81 MG; Start 05/10/18 at 09:00 Tamsulosin HCl (Flomax) 0.4 mg HS PO Last administered on 05/11/18 21:15; Admin Dose 0.4 MG; Start 05/09/18 at 21:00 Hydralazine HCl (Apresoline) 10 mg Q4H PRN IV SBP>190 Last administered on 05/10/18 08:30; Admin Dose 10 MG; Start 05/09/18 at 19:30 Atorvastatin Calcium (Lipitor) 40 mg DAILY@21 PO Last administered on 05/11/18 21:14; Admin Dose 40 MG; Start 05/09/18 at 21:00 Losartan Potassium (Cozaar) 100 mg DAILY PO Last administered on 05/11/18 08:53; Admin Dose 100 MG; Start 05/10/18 at 09:30; Status Hold Hydralazine HCl (Apresoline) 100 mg Q8 PO Last administered on 05/12/18 05:31; Admin Dose 100 MG; Start 05/11/18 at 14:00 Hydrochlorothiazide (Hydrochlorothiazide) 50 mg DAILY PO Last administered on 05/12/18 08:13; Admin Dose 50 MG; Start 05/12/18 at 09:00 Isosorbide Mononitrate (Ismo) 40 mg DAILY PO Last administered on 05/12/18 08:13; Admin Dose 40 MG; Start 05/11/18 at 12:30 Allergies: Coded Allergies: No Known Allergy (Unverified , 05/09/18) Past Surgical History Past Surgical Hx: no surgical history Family History Significant Family History: no pertinent family hx Social History Alcohol Use: occasionally Smoking Status: Former smoker Drug Use: none Exam/Review of Systems Exam Vitals Vital Signs Date Temp Pulse Resp B/P (MAP) Pulse Ox O2 O2 Flow FiO2 Time Delivery Rate 05/12/18 51 08:19 05/12/18 98.1 18 144/62 93 07:31 (89) 05/10/18 Room Air 03:37 05/09/18 2.0 17:45 Intake and Output 05/11/18 05/11/18 05/12/18 1515:00 23:00 07:00 IntakeIntake Total 400 ml 450 ml OutputOutput Total 900 ml 800 ml BalanceBalance -500 ml -350 ml Constitutional: alert Head: normocephalic Eyes: nl conjunctiva ENMT: nl external ears & nose Neck: supple, non-tender Respiratory: clear to auscultation, diminished breath sounds Cardiovascular: regular rate and rhythm, nl pulses Gastrointestinal: soft, non-tender Musculoskeletal: muscle weakness 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, nl mental status Skin: nl turgor Lymph: nl lymph nodes Results Result Diagram: 05/12/1839 05/12/18 0539 Results 24hrs Laboratory Tests Test 05/11/18 10:25 05/12/18 05:39 White Blood Count 5.4 6.0 Red Blood Count 3.74 L 3.79 L Hemoglobin 12.0 L 12.4 L Hematocrit 34.0 L 34.6 L Mean Corpuscular Volume 90.9 91.3 Mean Corpuscular Hemoglobin 32.1 32.7 Mean Corpuscular Hemoglobin Concent 35.3 35.8 Red Cell Distribution Width 13.2 13.2 Platelet Count 208 247 Mean Platelet Volume 9.9 10.2 Immature Granulocytes % 0.200 0.200 Neutrophils % 74.9 60.0 Lymphocytes % 14.9 L 27.7 Monocytes % 7.0 7.5 Eosinophils % 2.6 4.1 Basophils % 0.4 0.5 Nucleated Red Blood Cells % 0.0 0.0 Immature Granulocytes # 0.010 0.010 Neutrophils # 4.1 3.6 Lymphocytes # 0.8 1.7 Monocytes # 0.4 0.5 Eosinophils # 0.1 0.3 Basophils # 0.0 0.0 Nucleated Red Blood Cells # 0.0 0.0 Sodium Level 135 132 L Potassium Level 3.6 3.7 Chloride Level 96 L 94 L Carbon Dioxide Level 26 26 Anion Gap 13 # 12 Blood Urea Nitrogen 25 H 34 H Creatinine 1.72 H 2.59 H Est Glomerular Filtrat Rate mL/min Glucose Level 195 171 Calcium Level 9.3 9.1 Phosphorus Level 5.9 H 7.3 H Magnesium Level 1.8 2.0 Medications Medication Current Medications IV Flush (NS 3 ml) 3 ml PER PROTOCOL IV ; Start 05/09/18 at 19:30 Ondansetron HCl (Zofran Inj) 4 mg Q6H PRN IV NAUSEA/VOMITING; Start 05/09/18 at 19:30 Acetaminophen (Tylenol Tab) 650 mg Q6H PRN PO .PAIN 1-3 OR TEMP; Start 05/09/18 at 19:30 Amlodipine Besylate (Norvasc) 10 mg DAILY PO Last administered on 05/12/18 08:14; Admin Dose 10 MG; Start 05/10/18 at 09:00 Aspirin (Halfprin) 81 mg DAILY PO Last administered on 05/12/18 08:13; Admin Dose 81 MG; Start 05/10/18 at 09:00 Tamsulosin HCl (Flomax) 0.4 mg HS PO Last administered on 05/11/18 21:15; Admin Dose 0.4 MG; Start 05/09/18 at 21:00 Hydralazine HCl (Apresoline) 10 mg Q4H PRN IV SBP>190 Last administered on 05/10/18 08:30; Admin Dose 10 MG; Start 05/09/18 at 19:30 Atorvastatin Calcium (Lipitor) 40 mg DAILY@21 PO Last administered on 05/11/18 21:14; Admin Dose 40 MG; Start 05/09/18 at 21:00 Losartan Potassium (Cozaar) 100 mg DAILY PO Last administered on 05/11/18 08:53; Admin Dose 100 MG; Start 05/10/18 at 09:30; Status Hold Hydralazine HCl (Apresoline) 100 mg Q8 PO Last administered on 05/12/18 05:31; Admin Dose 100 MG; Start 05/11/18 at 14:00 Hydrochlorothiazide (Hydrochlorothiazide) 50 mg DAILY PO Last administered on 05/12/18at 08:13; Admin Dose 50 MG; Start 05/12/18 at 09:00 Isosorbide Mononitrate (Ismo) 40 mg DAILY PO Last administered on 05/12/18at 08:13; Admin Dose 40 MG; Start 05/11/18 at 12:30 SARBJIT BOLDEN MD May 12, 2018 09:00
[2018-05-12] MEDS ORDERED: hydrALAzine 20 MG INJ IV PRN (09:30)
--- NOTE | 2018-05-12 11:41 | PN ---
Date/Time of Note Date/Time of Note DATE: 05/12/18 TIME: 11:38 Assessment/Plan VTE Prophylaxis Risk score (from Ns)>0 risk: 4 SCD applied (from [facility]): No SCD contraindicated: low risk/ambulating Pharmacological prophylaxis: NA/contraindicated Pharm contraindication: low risk/ambulating Lines/Catheters IV [facility]ter Type (from [facility] Saline Lock Urinary Cath still in place: No Assessment/Plan Assessment/Plan 77 yo man history of HTN presents with dyspnea, new onset CHF and complete heart block. #New onset CHF #HTN #Dyspnea - Hypertensive to 190s systolic on admission. - Now euvolemic s/p diuresis. Stopping lasix - Still very hypertensive. Will continue to hold beta emelia, continue to titrate up hydralazine, norvasc (max), HCTZ. Added isosorbide. - prn hydralazine - echo 60-65%, no wall motion abnormalities - Consulted Dr. Copeland #ARPITA - May be due to overaggressive diuresis - Will hold ARB/ACEi - BP contorl - Consulted Dr. Guzmán. #Complete heart block #Right bundle branch block - Stopped beta blockers - Escape rate is persistently >40. No urgency for PPM this admission. DVT: SCDs GI: None Dispo: ARPITA with rising Cr, and poorly controlled hypertension. Result Diagram: 05/12/1853805/12/18538 Subjective 24 Hr Interval Summary Free Text/Dictation No acute overnight events. Patient feeling well. No dyspnea with ambulation. He does still report some paroxysmal nocturnal dyspnea. I spoke to daughter and son about his new ARPITA and need for continued hospitalization; and answered questions. Exam/Review of Systems Exam Vitals Vital Signs Date Temp Pulse Resp B/P (MAP) Pulse Ox O2 O2 Flow FiO2 Time Delivery Rate 05/12/18 51 08:19 05/12/18 98.1 18 144/62 93 07:31 (89) 05/10/18 Room Air 03:37 05/09/18 2.0 17:45 Intake and Output 05/11/18 05/11/18 05/12/18 1515:00 23:00 07:00 IntakeIntake Total 400 ml 450 ml OutputOutput Total 900 ml 800 ml BalanceBalance -500 ml -350 ml Exam Gen: Obese man breathing comfortably on room air in no distress. Eyes: PERRL, no icterus. HEENT: Clear oropharynx, moist mucous membranes. Rhinophyma. Neck: Cannot appreciate JV. No lymphadenopathy Card: Darius, no murmurs appreciated Pulm: Clear to auscultation bilaterally. Abd: Soft, nontender, nondistended. Ext: No cyanosis/clubbing/edema Skin: warm, dry, well perfused Medications Medication Current Medications IV Flush (NS 3 ml) 3 ml PER PROTOCOL IV ; Start 05/09/18 at 19:30 Ondansetron HCl (Zofran Inj) 4 mg Q6H PRN IV NAUSEA/VOMITING; Start 05/09/18 at 19:30 Acetaminophen (Tylenol Tab) 650 mg Q6H PRN PO .PAIN 1-3 OR TEMP; Start 05/09/18 at 19:30 Amlodipine Besylate (Norvasc) 10 mg DAILY PO Last administered on 05/12/18 08:14; Admin Dose 10 MG; Start 05/10/18 at 09:00 Aspirin (Halfprin) 81 mg DAILY PO Last administered on 05/12/18 08:13; Admin Dose 81 MG; Start 05/10/18 at 09:00 Tamsulosin HCl (Flomax) 0.4 mg HS PO Last administered on 05/11/18 21:15; Admin Dose 0.4 MG; Start 05/09/18 at 21:00 Hydralazine HCl (Apresoline) 10 mg Q4H PRN IV SBP>190 Last administered on 05/10/18 08:30; Admin Dose 10 MG; Start 05/09/18 at 19:30 Atorvastatin Calcium (Lipitor) 40 mg DAILY@21 PO Last administered on 05/11/18 21:14; Admin Dose 40 MG; Start 05/09/18 at 21:00 Hydralazine HCl (Apresoline) 100 mg Q8 PO Last administered on 05/12/18 05:31; Admin Dose 100 MG; Start 05/11/18 at 14:00 Isosorbide Mononitrate (Ismo) 40 mg DAILY PO Last administered on 05/12/18 08:13; Admin Dose 40 MG; Start 05/11/18 at 12:30 Hydralazine HCl (Apresoline) 10 mg Q4H PRN IV SBP more than 150 mmhg ; Start 05/12/18 at 09:30 KAYLAN GOMEZ MD May 12, 2018 11:41
--- NOTE | 2018-05-12 12:50 | CONS ---
Assessment/Plan Assessment/Plan Hospital Course (Demo Recall) IMPRESSION: 1. Heart block with a subsequent likely symptomatic bradycardia with episodes of 2:1 atrioventricular block and then additionally likely associated complete heart block at times as well with likely junctional escape rhythm around 50 to the 40s.-remains unchganged 2. Shortness of breath, dyspnea on exertion, likely due to chronotropic incompetence and heart block. NLl EF by echo 60-65% 3. Chest pain, assess for acute coronary syndrome.-resolved. Neg trop x 3 4. Hypertension-remains elevated 5. Benign prostatic hypertrophy. 6. Elevated BNP. Assess for congestive heart failure. 7. Anemia. 8. ARF-likley due to overdiuresis but now worsening with lasix d/c'd Recc: -Tele -Follow HR closely. No reyna agents -Spoke with patient/family about PPM which they say they would like to avoid as possible and use only as last resort. Thus as currently no syncope/dizziness/actually elevated BP will continue to follow. Spoke more about PPM and patgient may be agreeable and thus will have EP eval -Agree with uptitrate of antihypertensives to improve HR control -worsening renal failure, pnding renal consult -Continue asa/statin -Continue hydralazine/imdur -check cxr to assess for CHF given ? orthopnea -After cxr will consider gentle IVF hydration and follow renal function Consultation Date/Type/Reason Admit Date/Time May 09, 2018 at 18:42 Initial Consult Date 05/09/18 Type of Consult Cardiology Reason for Consultation heart block Requesting Provider: KAYLAN GOMEZ MD Date/Time of Note DATE: 05/12/18 TIME: 12:43 Exam/Review of Systems Vital Signs Vitals Vital Signs Date Temp Pulse Resp B/P (MAP) Pulse Ox O2 O2 Flow FiO2 Time Delivery Rate 05/12/18 45 12:38 05/12/18 97.5 18 112/53 97 12:03 (72) 05/10/18 Room Air 03:37 05/09/18 2.0 17:45 Intake and Output 05/11/18 05/11/18 05/12/18 1414:59 22:59 06:59 IntakeIntake Total 400 ml 450 ml OutputOutput Total 900 ml 800 ml BalanceBalance -500 ml -350 ml Exam Exam Review of Systems: CONSTITUTIONAL: No fevers, chills. PULMONARY:mild sob CARDIOVASCULAR: No chest pain/palpitations GASTROINTESTINAL: No nausea/vomiting. GENITOURINARY: No hematuria/dysuria. MUSCULOSKELETAL: No myagias/arthalgias. PSYCHIATRIC: The patient denies depression. NEUROLOGIC: No weakness Constitutional: alert Psych: no complaints Head: normocephalic ENMT: mucosa pink and moist Neck: supple, jvd (9 cm water) Respiratory: diminished breath sounds Cardiovascular: irregular rhythm Gastrointestinal: soft, non-tender Musculoskeletal: muscle tone (normal) Extremities: edema (none) 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: other (No focal deficits) Labs Result Diagram: 05/12/18 0539 05/12/18 0539 Results 24hrs Laboratory Tests Test 05/12/18 05:39 White Blood Count 6.0 Red Blood Count 3.79 L Hemoglobin 12.4 L Hematocrit 34.6 L Mean Corpuscular Volume 91.3 Mean Corpuscular Hemoglobin 32.7 Mean Corpuscular Hemoglobin Concent 35.8 Red Cell Distribution Width 13.2 Platelet Count 247 Mean Platelet Volume 10.2 Immature Granulocytes % 0.200 Neutrophils % 60.0 Lymphocytes % 27.7 Monocytes % 7.5 Eosinophils % 4.1 Basophils % 0.5 Nucleated Red Blood Cells % 0.0 Immature Granulocytes # 0.010 Neutrophils # 3.6 Lymphocytes # 1.7 Monocytes # 0.5 Eosinophils # 0.3 Basophils # 0.0 Nucleated Red Blood Cells # 0.0 Sodium Level 132 L Potassium Level 3.7 Chloride Level 94 L Carbon Dioxide Level 26 Anion Gap 12 Blood Urea Nitrogen 34 H Creatinine 2.59 H Est Glomerular Filtrat Rate mL/min Glucose Level 171 Calcium Level 9.1 Phosphorus Level 7.3 H Magnesium Level 2.0 Medications Medications Current Medications IV Flush (NS 3 ml) 3 ml PER PROTOCOL IV ; Start 05/09/18 at 19:30 Ondansetron HCl (Zofran Inj) 4 mg Q6H PRN IV NAUSEA/VOMITING; Start 05/09/18 at 19:30 Acetaminophen (Tylenol Tab) 650 mg Q6H PRN PO .PAIN 1-3 OR TEMP; Start 05/09/18 at 19:30 Amlodipine Besylate (Norvasc) 10 mg DAILY PO Last administered on 05/12/18at 08:14; Admin Dose 10 MG; Start 05/10/18 at 09:00 Aspirin (Halfprin) 81 mg DAILY PO Last administered on 05/12/18 08:13; Admin Dose 81 MG; Start 05/10/18 at 09:00 Tamsulosin HCl (Flomax) 0.4 mg HS PO Last administered on 05/11/18 21:15; Admin Dose 0.4 MG; Start 05/09/18 at 21:00 Hydralazine HCl (Apresoline) 10 mg Q4H PRN IV SBP>190 Last administered on 05/10/18 08:30; Admin Dose 10 MG; Start 05/09/18 at 19:30 Atorvastatin Calcium (Lipitor) 40 mg DAILY@21 PO Last administered on 05/11/18 21:14; Admin Dose 40 MG; Start 05/09/18 at 21:00 Hydralazine HCl (Apresoline) 100 mg Q8 PO Last administered on 05/12/18 05:31; Admin Dose 100 MG; Start 05/11/18 at 14:00 Isosorbide Mononitrate (Ismo) 40 mg DAILY PO Last administered on 05/12/18 08:13; Admin Dose 40 MG; Start 05/11/18 at 12:30 Hydralazine HCl (Apresoline) 10 mg Q4H PRN IV SBP more than 150 mmhg ; Start 05/12/18 at 09:30 KAYLAN ARGUETA May 12, 2018 12:50
[2018-05-12] MEDS: ATORVASTATIN 40 MG TAB PO SCH (20:44)
[2018-05-12] MEDS: TAMSULOSIN (SR) 0.4 MG CAP PO SCH (20:44)
[2018-05-13] VITALS (10 sets, daily range): BP systolic 114–171; BP diastolic 58–81; PULSE 41–72; RESP 18–20
[2018-05-13] MEDS: ASPIRIN (EC) 81 MG TAB PO SCH (09:28)
[2018-05-13] MEDS: AMLODIPINE 10 MG TAB PO SCH (09:30)
[2018-05-13] MEDS: ISOSORBIDE MONONITRATE 20 MG TAB PO SCH (09:30)
--- NOTE | 2018-05-13 11:24 | CONS ---
Assessment/Plan Assessment/Plan Assessment/Plan (Daily) 1. acute kidney injury possible due to Overdiuresis + nephrotoxicity 2. new onset CHF 3. Hyponatremia due to CHF 4. H/o HTN Plan: BUN/Cr 34/2.59, Na 132, Stopped IV lasix, Stop losartan and stop HCTZ Renal US showed normal size kidneys, no hydronephrosis Amlodipine 10mg po daily, with Hydralazine 100mg pO Q 8 hr , IV hydralazine prn will follow up Consultation Date/Type/Reason Admit Date/Time May 09, 2018 at 18:42 Initial Consult Date 05/12/18 Type of Consult NEPHROLOGY Requesting Provider: KAYLAN GOMEZ MD Date/Time of Note DATE: 05/13/18 TIME: 11:24 24 HR Interval Summary Free Text/Dictation BUn/Cr 34/2.59, Na 132, stable, no complaints Exam/Review of Systems Exam Vitals Vital Signs Date Temp Pulse Resp B/P (MAP) Pulse Ox O2 O2 Flow FiO2 Time Delivery Rate 05/13/18 42 10:58 05/13/18 98.0 20 171/81 96 08:54 (111) 05/13/18 Room Air 00:00 05/09/18 2.0 17:45 Intake and Output 05/12/18 05/12/18 05/13/18 1414:59 22:59 06:59 IntakeIntake Total 1000 ml 700 ml OutputOutput Total 0 ml 850 ml BalanceBalance 1000 ml -150 ml Exam Constitutional: alert, awake Respiratory: clear to auscultation, diminished breath sounds Cardiovascular: regular rate and rhythm, nl pulses Gastrointestinal: soft, non-tender Musculoskeletal: muscle weakness 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: [employer]RA[employer]SM[employer] II-XII intact, nl mental status Results Result Diagram: 05/12/18 0539 05/12/18 0539 Results 24hrs Laboratory Tests Test 05/13/18 05:37 05/13/18 07:30 Uric Acid 9.5 H Creatine Kinase 502 H Urine Color YELLOW Urine Clarity SLIGHTLY CLOUDY A Urine pH 5.0 Urine Specific [place] 1.015 Urine Ketones NEGATIVE Urine Nitrite NEGATIVE Urine Bilirubin NEGATIVE Urine Urobilinogen 1+ H Urine Leukocyte Esterase NEGATIVE Urine Microscopic RBC 4 Urine Microscopic WBC 6 H Urine Squamous Epithelial Cells FEW Urine Hyaline Casts FEW A Urine Hemoglobin NEGATIVE Urine Glucose NEGATIVE Urine Total Protein 1+ H Medications Medication Current Medications IV Flush (NS 3 ml) 3 ml PER PROTOCOL IV ; Start 05/09/18 at 19:30 Ondansetron HCl (Zofran Inj) 4 mg Q6H PRN IV NAUSEA/VOMITING Last administered on 05/13/18 11:06; Admin Dose 4 MG; Start 05/09/18 at 19:30 Acetaminophen (Tylenol Tab) 650 mg Q6H PRN PO .PAIN 1-3 OR TEMP; Start 05/09/18 at 19:30 Amlodipine Besylate (Norvasc) 10 mg DAILY PO Last administered on 05/13/18 09:30; Admin Dose 10 MG; Start 05/10/18 at 09:00 Aspirin (Halfprin) 81 mg DAILY PO Last administered on 05/13/18 09:28; Admin Dose 81 MG; Start 05/10/18 at 09:00 Tamsulosin HCl (Flomax) 0.4 mg HS PO Last administered on 05/12/18 20:44; Admin Dose 0.4 MG; Start 05/09/18 at 21:00 Hydralazine HCl (Apresoline) 10 mg Q4H PRN IV SBP>190 Last administered on 05/10/18 08:30; Admin Dose 10 MG; Start 05/09/18 at 19:30 Atorvastatin Calcium (Lipitor) 40 mg DAILY@21 PO Last administered on 05/12/18 20:44; Admin Dose 40 MG; Start 05/09/18 at 21:00 Hydralazine HCl (Apresoline) 100 mg Q8 PO Last administered on 05/13/18 05:46; Admin Dose 100 MG; Start 05/11/18 at 14:00 Isosorbide Mononitrate (Ismo) 40 mg DAILY PO Last administered on 05/13/18 09:30; Admin Dose 40 MG; Start 05/11/18 at 12:30 Hydralazine HCl (Apresoline) 10 mg Q4H PRN IV SBP more than 150 mmhg ; Start 05/12/18 at 09:30 SARBJIT BOLDEN MD May 13, 2018 11:24
--- NOTE | 2018-05-13 12:28 | CONS ---
Assessment/Plan Assessment/Plan Hospital Course (Demo Recall) IMPRESSION: 1. Heart block with a subsequent likely symptomatic bradycardia with episodes of 2:1 atrioventricular block and then additionally likely associated complete heart block at times as well with likely junctional escape rhythm around 50 to the 40s.-remains unchganged 2. Shortness of breath, dyspnea on exertion, likely due to chronotropic incompetence and heart block. NLl EF by echo 60-65% 3. Chest pain, assess for acute coronary syndrome.-resolved. Neg trop x 3 4. Hypertension-mildly elevated 5. Benign prostatic hypertrophy. 6. Elevated BNP. Assess for congestive heart failure. 7. Anemia. 8. ARF-likley due to overdiuresis but now worsening with lasix d/c'd Recc: -Tele -Follow HR closely. No reyna agents -Spoke with patient/family about PPM which they say they would like to avoid as possible and use only as last resort but may be agreeable if necessary. Thus EP eval for possible PPM in am -Agree with uptitrate of antihypertensives to improve HR control -renal now following -Continue asa/statin -Continue hydralazine/imdur -f/u renal studies Consultation Date/Type/Reason Admit Date/Time May 09, 2018 at 18:42 Initial Consult Date 05/09/18 Type of Consult Cardiology Reason for Consultation bradycardia Requesting Provider: KAYLAN GOMEZ MD Date/Time of Note DATE: 05/13/18 TIME: 12:24 Exam/Review of Systems Vital Signs Vitals Vital Signs Date Temp Pulse Resp B/P (MAP) Pulse Ox O2 O2 Flow FiO2 Time Delivery Rate 05/13/18 98.2 68 19 141/72 98 12:02 (95) 05/13/18 Room Air 00:00 05/09/18 2.0 17:45 Intake and Output 05/12/18 05/12/18 05/13/18 1515:00 23:00 07:00 IntakeIntake Total 1000 ml 700 ml OutputOutput Total 0 ml 850 ml BalanceBalance 1000 ml -150 ml Exam Exam Review of Systems: CONSTITUTIONAL: No fevers, chills. PULMONARY: mild sob CARDIOVASCULAR: No chest pain/palpitations GASTROINTESTINAL: No nausea/vomiting. GENITOURINARY: No hematuria/dysuria. MUSCULOSKELETAL: No myagias/arthalgias. PSYCHIATRIC: The patient denies depression. NEUROLOGIC: No weakness Constitutional: alert Psych: no complaints Head: normocephalic ENMT: mucosa pink and moist Neck: supple, jvd (9 cm water) Respiratory: diminished breath sounds Cardiovascular: regular rate and rhythm Gastrointestinal: soft, non-tender Musculoskeletal: muscle tone (normal) Extremities: edema (trace/B) 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: other (No focal deficits) Labs Result Diagram: 05/12/1853805/12/1839 Results 24hrs Laboratory Tests Test 05/13/18 05:37 05/13/18 07:30 Uric Acid 9.5 H Creatine Kinase 502 H Urine Color YELLOW Urine Clarity SLIGHTLY CLOUDY A Urine pH 5.0 Urine Specific [place] 1.015 Urine Ketones NEGATIVE Urine Nitrite NEGATIVE Urine Bilirubin NEGATIVE Urine Urobilinogen 1+ H Urine Leukocyte Esterase NEGATIVE Urine Microscopic RBC 4 Urine Microscopic WBC 6 H Urine Squamous Epithelial Cells FEW Urine Hyaline Casts FEW A Urine Hemoglobin NEGATIVE Urine Random Creatinine 299.26 Urine Random Sodium 16 L Urine Random Urea Nitrogen 256 Urine Glucose NEGATIVE Urine Total Protein 1+ H Medications Medications Current Medications IV Flush (NS 3 ml) 3 ml PER PROTOCOL IV ; Start 05/09/18 at 19:30 Ondansetron HCl (Zofran Inj) 4 mg Q6H PRN IV NAUSEA/VOMITING Last administered on 05/13/18at 11:06; Admin Dose 4 MG; Start 05/09/18 at 19:30 Acetaminophen (Tylenol Tab) 650 mg Q6H PRN PO .PAIN 1-3 OR TEMP; Start 05/09/18 at 19:30 Amlodipine Besylate (Norvasc) 10 mg DAILY PO Last administered on 05/13/18at 09:30; Admin Dose 10 MG; Start 05/10/18 at 09:00 Aspirin (Halfprin) 81 mg DAILY PO Last administered on 05/13/18 09:28; Admin Dose 81 MG; Start 05/10/18 at 09:00 Tamsulosin HCl (Flomax) 0.4 mg HS PO Last administered on 05/12/18at 20:44; Admin Dose 0.4 MG; Start 05/09/18 at 21:00 Hydralazine HCl (Apresoline) 10 mg Q4H PRN IV SBP>190 Last administered on 05/10/18at 08:30; Admin Dose 10 MG; Start 05/09/18 at 19:30 Atorvastatin Calcium (Lipitor) 40 mg DAILY@21 PO Last administered on 05/12/18at 20:44; Admin Dose 40 MG; Start 05/09/18 at 21:00 Hydralazine HCl (Apresoline) 100 mg Q8 PO Last administered on 05/13/18at 05:46; Admin Dose 100 MG; Start 05/11/18 at 14:00 Isosorbide Mononitrate (Ismo) 40 mg DAILY PO Last administered on 05/13/18at 09:30; Admin Dose 40 MG; Start 05/11/18 at 12:30 Hydralazine HCl (Apresoline) 10 mg Q4H PRN IV SBP more than 150 mmhg ; Start 05/12/18 at 09:30 KAYLAN ARGUETA May 13, 2018 12:28
--- NOTE | 2018-05-13 19:07 | PN ---
Date/Time of Note Date/Time of Note DATE: 05/13/18 TIME: 12:22 Assessment/Plan VTE Prophylaxis Risk score (from Nsg)>0 risk: 4 Pharmacological prophylaxis: LMWH Lines/Catheters IV Catheter Type (from Nrsg): Saline Lock Urinary Cath still in place: No Assessment/Plan Hospital Course S: feels well, family at bedside, we discussed for a long time O: Constitutional: alert, oriented Head: atraumatic, normocephalic Neck: non-tender, supple Respiratory: clear to auscultation Cardiovascular: regular rate and rhythm Gastrointestinal: S/ NT / ND / +BS Extremities: no edema, good radial pulses Assessment and plan: 77 yo man history of HTN presents with dyspnea, new onset CHF and complete heart block. #New onset CHF - Now euvolemic s/p diuresis. lasix d/akshat -- echo 60-65%, no wall motion abnormalities #HTN -control improved -continue to titrate meds #Dyspnea -improved, likely related to #1 -PT eval -wean o2 #ARPITA - May be due to overaggressive diuresis - Will hold ARB/ACEi -Nephro following, no obstruction on USS -avoid Nephrotoxic drugs. Renally dose all meds. Serial labs. #Complete heart block - Stopped beta blockers - Escape rate is persistently >40. No urgency for PPM this admission. -cardio following, will continue monitoring outpt for need for PPM Dispo: ARPITA with rising Cr, Result Diagram: 05/12/18 0539 05/12/18 0539 Results 24hrs Laboratory Tests Test 05/13/18 05:37 05/13/18 07:30 Uric Acid 9.5 H Creatine Kinase 502 H Urine Color YELLOW Urine Clarity SLIGHTLY CLOUDY A Urine pH 5.0 Urine Specific [place] 1.015 Urine Ketones NEGATIVE Urine Nitrite NEGATIVE Urine Bilirubin NEGATIVE Urine Urobilinogen 1+ H Urine Leukocyte Esterase NEGATIVE Urine Microscopic RBC 4 Urine Microscopic WBC 6 H Urine Squamous Epithelial Cells FEW Urine Hyaline Casts FEW A Urine Hemoglobin NEGATIVE Urine Random Creatinine 299.26 Urine Random Sodium 16 L Urine Random Urea Nitrogen 256 Urine Protein/Creatinine Ratio 0.10 Urine Glucose NEGATIVE Urine Total Protein 1+ H Exam/Review of Systems Exam Vitals Vital Signs Date Temp Pulse Resp B/P (MAP) Pulse Ox O2 O2 Flow FiO2 Time Delivery Rate 05/13/18 3.0 17:23 05/13/18 42 17:04 05/13/18 98.0 19 128/60 96 16:02 (82) 05/13/18 Room Air 00:00 Intake and Output 05/12/18 05/12/18 05/13/18 1515:00 23:00 07:00 IntakeIntake Total 1000 ml 700 ml OutputOutput Total 0 ml 850 ml BalanceBalance 1000 ml -150 ml Results Results 24hrs Laboratory Tests Test 05/13/18 05:37 05/13/18 07:30 Uric Acid 9.5 H Creatine Kinase 502 H Urine Color YELLOW Urine Clarity SLIGHTLY CLOUDY A Urine pH 5.0 Urine Specific [place] 1.015 Urine Ketones NEGATIVE Urine Nitrite NEGATIVE Urine Bilirubin NEGATIVE Urine Urobilinogen 1+ H Urine Leukocyte Esterase NEGATIVE Urine Microscopic RBC 4 Urine Microscopic WBC 6 H Urine Squamous Epithelial Cells FEW Urine Hyaline Casts FEW A Urine Hemoglobin NEGATIVE Urine Random Creatinine 299.26 Urine Random Sodium 16 L Urine Random Urea Nitrogen 256 Urine Protein/Creatinine Ratio 0.10 Urine Glucose NEGATIVE Urine Total Protein 1+ H Medications Medication Current Medications IV Flush (NS 3 ml) 3 ml PER PROTOCOL IV ; Start 05/09/18 at 19:30 Ondansetron HCl (Zofran Inj) 4 mg Q6H PRN IV NAUSEA/VOMITING Last administered on 05/13/18at 11:06; Admin Dose 4 MG; Start 05/09/18 at 19:30 Acetaminophen (Tylenol Tab) 650 mg Q6H PRN PO .PAIN 1-3 OR TEMP; Start 05/09/18 at 19:30 Amlodipine Besylate (Norvasc) 10 mg DAILY PO Last administered on 05/13/18 09:30; Admin Dose 10 MG; Start 05/10/18 at 09:00 Aspirin (Halfprin) 81 mg DAILY PO Last administered on 05/13/18 09:28; Admin Dose 81 MG; Start 05/10/18 at 09:00 Tamsulosin HCl (Flomax) 0.4 mg HS PO Last administered on 05/12/18at 20:44; Admin Dose 0.4 MG; Start 05/09/18 at 21:00 Hydralazine HCl (Apresoline) 10 mg Q4H PRN IV SBP>190 Last administered on 05/10/18 08:30; Admin Dose 10 MG; Start 05/09/18 at 19:30 Atorvastatin Calcium (Lipitor) 40 mg DAILY@21 PO Last administered on 05/12/18at 20:44; Admin Dose 40 MG; Start 05/09/18 at 21:00 Hydralazine HCl (Apresoline) 100 mg Q8 PO Last administered on 05/13/18at 14:10; Admin Dose 100 MG; Start 05/11/18 at 14:00 Isosorbide Mononitrate (Ismo) 40 mg DAILY PO Last administered on 05/13/18at 09:30; Admin Dose 40 MG; Start 05/11/18 at 12:30 Hydralazine HCl (Apresoline) 10 mg Q4H PRN IV SBP more than 150 mmhg ; Start 05/12/18 at 09:30 JEROME EVERETT May 13, 2018 19:07
[2018-05-13] MEDS: ATORVASTATIN 40 MG TAB PO SCH (21:55)
[2018-05-13] MEDS: TAMSULOSIN (SR) 0.4 MG CAP PO SCH (21:55)
[2018-05-14] VITALS (12 sets, daily range): BP systolic 114–135; BP diastolic 56–63; PULSE 40–44; RESP 18–41
[2018-05-14] MEDS: ASPIRIN (EC) 81 MG TAB PO SCH (08:58)
[2018-05-14] MEDS: AMLODIPINE 10 MG TAB PO SCH (08:58)
[2018-05-14] MEDS: ISOSORBIDE MONONITRATE 20 MG TAB PO SCH (08:58)
[2018-05-14] MEDS: ENOXAPARIN 30 MG/0.3 ML SYG SC SCH (09:10)
--- NOTE | 2018-05-14 09:45 | CONS ---
Consult Date/Type/Reason Admit Date/Time May 09, 2018 at 18:42 Initial Consult Date 05/12/18 Requesting Provider: KAYLAN GOMEZ MD Date/Time of Note DATE: 05/14/18 TIME: 09:41 Subjective NO acute events - pt stable - still very michelle - I spoke with family and patient - risk/benefits/alternatives explained - all agree to proceed - scheduled for 2 pm tomorrow. ROS: No fever, no chills, no nausea, no vomiting, no diarrhea/constipation No recent weight changes No chest pain, no PND, no orthopnea - mild SOB. No dizziness, blurred vision No thirst, no heat or cold intolerance Objective Vitals Vital Signs Date Temp Pulse Resp B/P (MAP) Pulse Ox O2 O2 Flow FiO2 Time Delivery Rate 05/14/18 98.4 41 41 122/60 94 07:11 (80) 05/14/18 3.0 04:19 05/13/18 Room Air 00:00 Intake and Output 05/13/18 05/13/18 05/14/18 1515:00 23:00 07:00 IntakeIntake Total 220 ml 250 ml OutputOutput Total 900 ml BalanceBalance 220 ml -650 ml Exam General: WN/WD/NAD, AOx 3 HEENT: Unicetric/atraumatic/EOMI ( follows commands) NECK: JVD elevated, no thyromegaly Lymph: no lymphadenopathy HEART: regular with no S3, II/ systolic murmur at apex, PMI L LUNGS: Coarse sounds ABD: soft, NT, ND, +BS : Intact Neuro: non focal SKIN: chronic changes EXT: trace edema Results/Medications Result Diagram: 05/14/1854 05/14/18 0654 Results 24 hrs Laboratory Tests Test 05/14/18 06:54 White Blood Count 4.7 #L Red Blood Count 3.47 L Hemoglobin 11.0 L Hematocrit 31.3 L Mean Corpuscular Volume 90.2 Mean Corpuscular Hemoglobin 31.7 Mean Corpuscular Hemoglobin Concent 35.1 Red Cell Distribution Width 12.6 Platelet Count 231 Mean Platelet Volume 9.9 Immature Granulocytes % 0.200 Neutrophils % 63.8 Lymphocytes % 23.9 Monocytes % 7.2 Eosinophils % 4.7 Basophils % 0.2 Nucleated Red Blood Cells % 0.0 Immature Granulocytes # 0.010 Neutrophils # 3.0 Lymphocytes # 1.1 Monocytes # 0.3 Eosinophils # 0.2 Basophils # 0.0 Nucleated Red Blood Cells # 0.0 Sodium Level 128 L Potassium Level 3.9 Chloride Level 92 L Carbon Dioxide Level 28 Anion Gap 8 Blood Urea Nitrogen 47 H Creatinine 2.94 H Est Glomerular Filtrat Rate mL/min Glucose Level 156 Calcium Level 8.7 Magnesium Level 2.3 Home Meds Reported Medications Irbesartan-Hydrochlorothiazide (Irbesartan-Hydrochlorothiazide) 300-12.5 Mg Tab, 1 EACH PO DAILY, TAB 05/09/18 Amlodipine Besylate* (Amlodipine Besylate*) 10 Mg Tablet, 10 MG PO DAILY, #30 TAB 05/09/18 Sildenafil Citrate* (Viagra*) 25 Mg Tablet, 25 MG PO DAILY, TAB TAKE 1 TAB DAILY 1HOUR BEFORE NEEDED 05/09/18 Rosuvastatin Calcium* (Crestor*) 10 Mg Tablet, 10 MG PO QHS, #30 TAB 05/09/18 Aspirin* (Aspirin* EC) 81 Mg Tablet.dr, 81 MG PO DAILY, TAB 05/09/18 Tamsulosin Hcl* (Tamsulosin Hcl*) 0.4 Mg Cap.er.24h, 0.4 MG PO HS, CAP 05/09/18 Medications Current Medications IV Flush (NS 3 ml) 3 ml PER PROTOCOL IV ; Start 05/09/18 at 19:30 Ondansetron HCl (Zofran Inj) 4 mg Q6H PRN IV NAUSEA/VOMITING Last administered on 05/13/18at 11:06; Admin Dose 4 MG; Start 05/09/18 at 19:30 Acetaminophen (Tylenol Tab) 650 mg Q6H PRN PO .PAIN 1-3 OR TEMP Last administered on 05/14/18at 09:12; Admin Dose 650 MG; Start 05/09/18 at 19:30 Amlodipine Besylate (Norvasc) 10 mg DAILY PO Last administered on 05/14/18 08:58; Admin Dose 10 MG; Start 05/10/18 at 09:00 Aspirin (Halfprin) 81 mg DAILY PO Last administered on 05/14/18 08:58; Admin Dose 81 MG; Start 05/10/18 at 09:00 Tamsulosin HCl (Flomax) 0.4 mg HS PO Last administered on 05/13/18at 21:55; Admin Dose 0.4 MG; Start 05/09/18 at 21:00 Hydralazine HCl (Apresoline) 10 mg Q4H PRN IV SBP>190 Last administered on 05/10/18 08:30; Admin Dose 10 MG; Start 05/09/18 at 19:30 Atorvastatin Calcium (Lipitor) 40 mg DAILY@21 PO Last administered on 05/13/18 21:55; Admin Dose 40 MG; Start 05/09/18 at 21:00 Hydralazine HCl (Apresoline) 100 mg Q8 PO Last administered on 05/14/18 06:40; Admin Dose 100 MG; Start 05/11/18 at 14:00 Isosorbide Mononitrate (Ismo) 40 mg DAILY PO Last administered on 05/14/18 08:58; Admin Dose 40 MG; Start 05/11/18 at 12:30 Hydralazine HCl (Apresoline) 10 mg Q4H PRN IV SBP more than 150 mmhg ; Start 05/12/18 at 09:30 Enoxaparin Sodium (Lovenox) 30 mg DAILY SC Last administered on 05/14/18 09:10; Admin Dose 30 MG; Start 05/14/18 at 09:00 Assessment/Plan Hospital Course (Demo Recall) 1. Heart block with a subsequent likely symptomatic bradycardia with episodes of 2:1 atrioventricular block and then additionally likely associated complete heart block at times as well with likely junctional escape rhythm around 50 to the 40s.-remains unchanged - pt has Class I indication for pacer - I spoke with im via postpartum rn and his son on the phone, all agree to proceed - will fac ilitate for tomorrow at 2 pm - strict NPO past midnight. 2. Shortness of breath, dyspnea on exertion, likely due to chronotropic incompetence and heart block. NLl EF by echo 60-65% - increased HR ought to help. 3. Chest pain, assess for acute coronary syndrome.-resolved. Neg trop x 3 4. Hypertension-mildly elevated - will add Rx post pacer. 5. Benign prostatic hypertrophy. 6. Elevated BNP. Assess for congestive heart failure. 7. Anemia. 8. ARF-likley due to overdiuresis but now worsening with lasix d/c'd - stable urine output now. YARI BARAHONA MD May 14, 2018 09:45
--- NOTE | 2018-05-14 10:03 | CONS ---
Assessment/Plan Assessment/Plan Assessment/Plan (Daily) 1. acute kidney injury possible due to Overdiuresis + nephrotoxicity 2. new onset CHF 3. Hyponatremia due to CHF 4. H/o HTN Plan: BUN/cr went up 47/2.94, Na dropped to 128- will give IVF NS at 50 cc/hr Stopped IV lasix, Stop losartan and stop HCTZ Renal US showed normal size kidneys, no hydronephrosis Amlodipine 10mg po daily, with Hydralazine 100mg pO Q 8 hr , IV hydralazine prn will follow up Consultation Date/Type/Reason Admit Date/Time May 09, 2018 at 18:42 Initial Consult Date 05/12/18 Type of Consult NEPHROLOGY Requesting Provider: KAYLAN GOMEZ MD Date/Time of Note DATE: 05/14/18 TIME: 10:03 24 HR Interval Summary Free Text/Dictation BUN/cr went up 47/2.94, Na dropped to 128, BP stable, afebrile Exam/Review of Systems Exam Vitals Vital Signs Date Temp Pulse Resp B/P (MAP) Pulse Ox O2 O2 Flow FiO2 Time Delivery Rate 05/14/18 41 08:00 05/14/18 98.4 41 122/60 94 07:11 (80) 05/14/18 3.0 04:19 05/13/18 Room Air 00:00 Intake and Output 05/13/18 05/13/18 05/14/18 1515:00 23:00 07:00 IntakeIntake Total 220 ml 250 ml OutputOutput Total 900 ml BalanceBalance 220 ml -650 ml Exam Constitutional: alert, awake Respiratory: clear to auscultation, diminished breath sounds Cardiovascular: regular rate and rhythm, nl pulses Gastrointestinal: soft, non-tender Musculoskeletal: muscle weakness 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: 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 II-XII intact, nl mental status Results Result Diagram: 05/14/18 0654 05/14/18 0654 Results 24hrs Laboratory Tests Test 05/14/18 06:54 White Blood Count 4.7 #L Red Blood Count 3.47 L Hemoglobin 11.0 L Hematocrit 31.3 L Mean Corpuscular Volume 90.2 Mean Corpuscular Hemoglobin 31.7 Mean Corpuscular Hemoglobin Concent 35.1 Red Cell Distribution Width 12.6 Platelet Count 231 Mean Platelet Volume 9.9 Immature Granulocytes % 0.200 Neutrophils % 63.8 Lymphocytes % 23.9 Monocytes % 7.2 Eosinophils % 4.7 Basophils % 0.2 Nucleated Red Blood Cells % 0.0 Immature Granulocytes # 0.010 Neutrophils # 3.0 Lymphocytes # 1.1 Monocytes # 0.3 Eosinophils # 0.2 Basophils # 0.0 Nucleated Red Blood Cells # 0.0 Sodium Level 128 L Potassium Level 3.9 Chloride Level 92 L Carbon Dioxide Level 28 Anion Gap 8 Blood Urea Nitrogen 47 H Creatinine 2.94 H Est Glomerular Filtrat Rate mL/min Glucose Level 156 Calcium Level 8.7 Magnesium Level 2.3 Medications Medication Current Medications IV Flush (NS 3 ml) 3 ml PER PROTOCOL IV ; Start 05/09/18 at 19:30 Ondansetron HCl (Zofran Inj) 4 mg Q6H PRN IV NAUSEA/VOMITING Last administered on 05/13/18 11:06; Admin Dose 4 MG; Start 05/09/18 at 19:30 Acetaminophen (Tylenol Tab) 650 mg Q6H PRN PO .PAIN 1-3 OR TEMP Last administered on 05/14/18 09:12; Admin Dose 650 MG; Start 05/09/18 at 19:30 Amlodipine Besylate (Norvasc) 10 mg DAILY PO Last administered on 05/14/18 08:58; Admin Dose 10 MG; Start 05/10/18 at 09:00 Aspirin (Halfprin) 81 mg DAILY PO Last administered on 05/14/18 08:58; Admin Dose 81 MG; Start 05/10/18 at 09:00 Tamsulosin HCl (Flomax) 0.4 mg HS PO Last administered on 05/13/18 21:55; Admin Dose 0.4 MG; Start 05/09/18 at 21:00 Hydralazine HCl (Apresoline) 10 mg Q4H PRN IV SBP>190 Last administered on 05/10/18 08:30; Admin Dose 10 MG; Start 05/09/18 at 19:30 Atorvastatin Calcium (Lipitor) 40 mg DAILY@21 PO Last administered on 05/13/18 21:55; Admin Dose 40 MG; Start 05/09/18 at 21:00 Hydralazine HCl (Apresoline) 100 mg Q8 PO Last administered on 05/14/18 06:40; Admin Dose 100 MG; Start 05/11/18 at 14:00 Isosorbide Mononitrate (Ismo) 40 mg DAILY PO Last administered on 05/14/18at 08:58; Admin Dose 40 MG; Start 05/11/18 at 12:30 Hydralazine HCl (Apresoline) 10 mg Q4H PRN IV SBP more than 150 mmhg ; Start 05/12/18 at 09:30 Enoxaparin Sodium (Lovenox) 30 mg DAILY SC Last administered on 05/14/18at 09:10; Admin Dose 30 MG; Start 05/14/18 at 09:00 SARBJIT BOLDEN MD May 14, 2018 10:03
[2018-05-14] MEDS: SOD CHLORIDE 0.9% 1,000 ML IV SCH (10:55)
--- NOTE | 2018-05-14 12:33 | PN ---
Date/Time of Note Date/Time of Note DATE: 05/14/18 TIME: 12:29 Assessment/Plan VTE Prophylaxis Risk score (from Nsg)>0 risk: 4 Pharmacological prophylaxis: LMWH Lines/Catheters IV Catheter Type (from Nrsg): Saline Lock Urinary Cath still in place: No Assessment/Plan Hospital Course S: feels well, O: Constitutional: alert, oriented Head: atraumatic, normocephalic Neck: non-tender, supple Respiratory: clear to auscultation Cardiovascular: regular rate and rhythm Gastrointestinal: S/ NT / ND / +BS Extremities: no edema, good radial pulses Assessment and plan: 77 yo man history of HTN presents with dyspnea, new onset CHF and complete heart block. #New onset CHF - Now euvolemic s/p diuresis. lasix d/akshat -- echo 60-65%, no wall motion abnormalities #HTN -control improved -continue to titrate meds #Dyspnea -improved, likely related to #1 -PT eval -wean o2 #ARPITA - May be due to overaggressive diuresis - Will hold ARB/ACEi -Nephro following, no obstruction on USS -avoid Nephrotoxic drugs. Renally dose all meds. Serial labs. #Complete heart block - Stopped beta blockers - Escape rate is persistently >40. No urgency for PPM this admission. -cardio following, family has consented to PPM placement #hyponatremia -nephro managing fluids Dispo: ARPITA improved, nut worsened hyponatremia, Nephro to do spot dosing of lasix today pacemaker placement today possible d/c tomorrow if indices improved, will need renal function panel few days after discharge home with vs SNF once cleared Prophylaxis : lovenox Result Diagram: 05/14/18 0654 05/14/18 0654 Results 24hrs Laboratory Tests Test 05/14/18 06:54 White Blood Count 4.7 #L Red Blood Count 3.47 L Hemoglobin 11.0 L Hematocrit 31.3 L Mean Corpuscular Volume 90.2 Mean Corpuscular Hemoglobin 31.7 Mean Corpuscular Hemoglobin Concent 35.1 Red Cell Distribution Width 12.6 Platelet Count 231 Mean Platelet Volume 9.9 Immature Granulocytes % 0.200 Neutrophils % 63.8 Lymphocytes % 23.9 Monocytes % 7.2 Eosinophils % 4.7 Basophils % 0.2 Nucleated Red Blood Cells % 0.0 Immature Granulocytes # 0.010 Neutrophils # 3.0 Lymphocytes # 1.1 Monocytes # 0.3 Eosinophils # 0.2 Basophils # 0.0 Nucleated Red Blood Cells # 0.0 Sodium Level 128 L Potassium Level 3.9 Chloride Level 92 L Carbon Dioxide Level 28 Anion Gap 8 Blood Urea Nitrogen 47 H Creatinine 2.94 H Est Glomerular Filtrat Rate mL/min Glucose Level 156 Calcium Level 8.7 Magnesium Level 2.3 Exam/Review of Systems Exam Vitals Vital Signs Date Temp Pulse Resp B/P (MAP) Pulse Ox O2 O2 Flow FiO2 Time Delivery Rate 05/14/18 98.1 40 18 114/56 93 11:35 (75) 05/14/18 3.0 10:26 05/13/18 Room Air 00:00 Intake and Output 05/13/18 05/13/18 05/14/18 1515:00 23:00 07:00 IntakeIntake Total 220 ml 250 ml OutputOutput Total 900 ml BalanceBalance 220 ml -650 ml Results Results 24hrs Laboratory Tests Test 05/14/18 06:54 White Blood Count 4.7 #L Red Blood Count 3.47 L Hemoglobin 11.0 L Hematocrit 31.3 L Mean Corpuscular Volume 90.2 Mean Corpuscular Hemoglobin 31.7 Mean Corpuscular Hemoglobin Concent 35.1 Red Cell Distribution Width 12.6 Platelet Count 231 Mean Platelet Volume 9.9 Immature Granulocytes % 0.200 Neutrophils % 63.8 Lymphocytes % 23.9 Monocytes % 7.2 Eosinophils % 4.7 Basophils % 0.2 Nucleated Red Blood Cells % 0.0 Immature Granulocytes # 0.010 Neutrophils # 3.0 Lymphocytes # 1.1 Monocytes # 0.3 Eosinophils # 0.2 Basophils # 0.0 Nucleated Red Blood Cells # 0.0 Sodium Level 128 L Potassium Level 3.9 Chloride Level 92 L Carbon Dioxide Level 28 Anion Gap 8 Blood Urea Nitrogen 47 H Creatinine 2.94 H Est Glomerular Filtrat Rate mL/min Glucose Level 156 Calcium Level 8.7 Magnesium Level 2.3 Medications Medication Current Medications IV Flush (NS 3 ml) 3 ml PER PROTOCOL IV ; Start 05/09/18 at 19:30 Ondansetron HCl (Zofran Inj) 4 mg Q6H PRN IV NAUSEA/VOMITING Last administered on 05/13/18at 11:06; Admin Dose 4 MG; Start 05/09/18 at 19:30 Acetaminophen (Tylenol Tab) 650 mg Q6H PRN PO .PAIN 1-3 OR TEMP Last administered on 05/14/18 09:12; Admin Dose 650 MG; Start 05/09/18 at 19:30 Amlodipine Besylate (Norvasc) 10 mg DAILY PO Last administered on 05/14/18 08:58; Admin Dose 10 MG; Start 05/10/18 at 09:00 Aspirin (Halfprin) 81 mg DAILY PO Last administered on 05/14/18 08:58; Admin Dose 81 MG; Start 05/10/18 at 09:00 Tamsulosin HCl (Flomax) 0.4 mg HS PO Last administered on 05/13/18 21:55; Admin Dose 0.4 MG; Start 05/09/18 at 21:00 Hydralazine HCl (Apresoline) 10 mg Q4H PRN IV SBP>190 Last administered on 05/10/18 08:30; Admin Dose 10 MG; Start 05/09/18 at 19:30 Atorvastatin Calcium (Lipitor) 40 mg DAILY@21 PO Last administered on 05/13/18 21:55; Admin Dose 40 MG; Start 05/09/18 at 21:00 Hydralazine HCl (Apresoline) 100 mg Q8 PO Last administered on 05/14/18 06:40; Admin Dose 100 MG; Start 05/11/18 at 14:00 Isosorbide Mononitrate (Ismo) 40 mg DAILY PO Last administered on 05/14/18 08:58; Admin Dose 40 MG; Start 05/11/18 at 12:30 Hydralazine HCl (Apresoline) 10 mg Q4H PRN IV SBP more than 150 mmhg ; Start 05/12/18 at 09:30 Enoxaparin Sodium (Lovenox) 30 mg DAILY SC Last administered on 05/14/18 09:10; Admin Dose 30 MG; Start 05/14/18 at 09:00 Sodium Chloride 1,000 ml @ 50 mls/hr Q20H IV Last administered on 05/14/18 10 :55; Admin Dose 50 MLS/HR; Start 05/14/18 at 10:30 JEROME EVERETT May 14, 2018 12:33
[2018-05-14] MEDS: ATORVASTATIN 40 MG TAB PO SCH (20:56)
[2018-05-14] MEDS: TAMSULOSIN (SR) 0.4 MG CAP PO SCH (20:56)
[2018-05-15] VITALS (37 sets, daily range): BP systolic 121–168; BP diastolic 52–76; PULSE 38–66; RESP 18–29
[2018-05-15] MEDS: SOD CHLORIDE 0.9% 1,000 ML IV SCH (06:13)
[2018-05-15] MEDS: AMLODIPINE 10 MG TAB PO SCH (08:23)
[2018-05-15] MEDS: ISOSORBIDE MONONITRATE 20 MG TAB PO SCH (08:23)
[2018-05-15] MEDS: ASPIRIN (EC) 81 MG TAB PO SCH (08:23)
[2018-05-15] MEDS: ENOXAPARIN 30 MG/0.3 ML SYG SC SCH (08:23)
[2018-05-15] MEDS ORDERED: FUROSEMIDE 20 MG INJ IV STA (08:59)
--- NOTE | 2018-05-15 09:01 | CONS ---
Assessment/Plan Assessment/Plan Assessment/Plan (Daily) 1. acute kidney injury possible due to Overdiuresis + nephrotoxicity 2. new onset CHF 3. Hyponatremia due to CHF 4. H/o HTN Plan: BUN/Cr 61/2.41, Na dropped to 127, pt has been on Diuretics, cardiology following ECHO showed moderate MS, EF 65% - will give lasix 20mg iV x 1 dose today now and monitor Cr in AM labs Stopped IV lasix, Stop losartan and stop HCTZ Renal US showed normal size kidneys, no hydronephrosis Amlodipine 10mg po daily, with Hydralazine 100mg pO Q 8 hr , IV hydralazine prn will follow up Consultation Date/Type/Reason Admit Date/Time May 09, 2018 at 18:42 Initial Consult Date 05/12/18 Type of Consult NEPHROLOGY Requesting Provider: KAYLAN GOMEZ MD Date/Time of Note DATE: 05/15/18 TIME: 09:01 24 HR Interval Summary Free Text/Dictation BUN/Cr 61/2.41, Na dropped to 127, pt has been on Diuretics, cardiology following ECHO showed moderate MS, EF 65% Exam/Review of Systems Exam Vitals Vital Signs Date Temp Pulse Resp B/P (MAP) Pulse Ox O2 O2 Flow FiO2 Time Delivery Rate 05/15/18 39 08:21 05/15/18 Nasal 2.0 07:20 Cannula 05/15/18 97.7 18 140/63 96 07:17 (88) Intake and Output 05/14/18 05/14/18 05/15/18 1414:59 22:59 06:59 IntakeIntake Total 640 ml BalanceBalance 640 ml Exam Constitutional: alert, awake , no acute distress Respiratory: clear to auscultation, diminished breath sounds Cardiovascular: regular rate and rhythm, nl pulses Gastrointestinal: soft, non-tender Musculoskeletal: muscle weakness 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: MERCHANDISE COORDINATOR II-XII intact, nl mental status Results Result Diagram: 05/15/1859 05/15/18 0559 Results 24hrs Laboratory Tests Test 05/15/18 05:59 White Blood Count 5.0 Red Blood Count 3.33 L Hemoglobin 10.6 L Hematocrit 30.0 L Mean Corpuscular Volume 90.1 Mean Corpuscular Hemoglobin 31.8 Mean Corpuscular Hemoglobin Concent 35.3 Red Cell Distribution Width 13.0 Platelet Count 226 Mean Platelet Volume 10.4 Immature Granulocytes % 0.400 Neutrophils % 72.9 Lymphocytes % 16.6 Monocytes % 7.1 Eosinophils % 2.6 Basophils % 0.4 Nucleated Red Blood Cells % 0.0 Immature Granulocytes # 0.020 Neutrophils # 3.6 Lymphocytes # 0.8 Monocytes # 0.4 Eosinophils # 0.1 Basophils # 0.0 Nucleated Red Blood Cells # 0.0 Sodium Level 127 L Potassium Level 4.0 Chloride Level 91 L Carbon Dioxide Level 23 Anion Gap 13 Blood Urea Nitrogen 61 H Creatinine 2.41 H Est Glomerular Filtrat Rate mL/min Glucose Level 166 Calcium Level 8.3 L Medications Medication Current Medications IV Flush (NS 3 ml) 3 ml PER PROTOCOL IV ; Start 05/09/18 at 19:30 Ondansetron HCl (Zofran Inj) 4 mg Q6H PRN IV NAUSEA/VOMITING Last administered on 05/13/18 11:06; Admin Dose 4 MG; Start 05/09/18 at 19:30 Acetaminophen (Tylenol Tab) 650 mg Q6H PRN PO .PAIN 1-3 OR TEMP Last administered on 05/14/18 09:12; Admin Dose 650 MG; Start 05/09/18 at 19:30 Amlodipine Besylate (Norvasc) 10 mg DAILY PO Last administered on 05/14/18 08:58; Admin Dose 10 MG; Start 05/10/18 at 09:00 Aspirin (Halfprin) 81 mg DAILY PO Last administered on 05/14/18 08:58; Admin Dose 81 MG; Start 05/10/18 at 09:00 Tamsulosin HCl (Flomax) 0.4 mg HS PO Last administered on 05/14/18 20:56; Admin Dose 0.4 MG; Start 05/09/18 at 21:00 Hydralazine HCl (Apresoline) 10 mg Q4H PRN IV SBP>190 Last administered on 05/10/18 08:30; Admin Dose 10 MG; Start 05/09/18 at 19:30 Atorvastatin Calcium (Lipitor) 40 mg DAILY@21 PO Last administered on 05/14/18 20:56; Admin Dose 40 MG; Start 05/09/18 at 21:00 Hydralazine HCl (Apresoline) 100 mg Q8 PO Last administered on 05/14/18 21:55; Admin Dose 100 MG; Start 05/11/18 at 14:00 Isosorbide Mononitrate (Ismo) 40 mg DAILY PO Last administered on 05/14/18at 08:58; Admin Dose 40 MG; Start 05/11/18 at 12:30 Hydralazine HCl (Apresoline) 10 mg Q4H PRN IV SBP more than 150 mmhg ; Start 05/12/18 at 09:30 Enoxaparin Sodium (Lovenox) 30 mg DAILY SC Last administered on 05/14/18at 09:10; Admin Dose 30 MG; Start 05/14/18 at 09:00 Furosemide (Lasix) 20 mg ONCE STAT IV ; Start 05/15/18 at 08:59; Stop 05/15/18 at 09:00; Status UNV SARBJIT BOLDEN MD May 15, 2018 09:01
--- NOTE | 2018-05-15 13:21 | PREAC ---
Date/Time of Note Date/Time of Note DATE: 05/15/18 TIME: : Anesthesia Eval and Record Evaluation Time Pre-Procedure Interview DATE: 05/15/18 TIME: : Age 77 Sex male NPO: 8 hrs Preoperative diagnosis New onset CHF Planned procedure Pacemaker placement Past Medical History Past Medical History: Includes Cardio: HTN, CHF Pulm: Other (dyspnea) Renal: ARPITA Surgery & Anesthesia Issues No known issue Meds Anticoagulation: No Beta Tomas within 24 hr: No Reason Beta Tomas not given: Pt. not on B-Tomas Reported Medications Irbesartan-Hydrochlorothiazide (Irbesartan-Hydrochlorothiazide) 300-12.5 Mg Tab, 1 EACH PO DAILY, TAB 05/09/18 Amlodipine Besylate* (Amlodipine Besylate*) 10 Mg Tablet, 10 MG PO DAILY, #30 TAB 05/09/18 Sildenafil Citrate* (Viagra*) 25 Mg Tablet, 25 MG PO DAILY, TAB TAKE 1 TAB DAILY 1HOUR BEFORE NEEDED 05/09/18 Rosuvastatin Calcium* (Crestor*) 10 Mg Tablet, 10 MG PO QHS, #30 TAB 05/09/18 Aspirin* (Aspirin* EC) 81 Mg Tablet.dr, 81 MG PO DAILY, TAB 05/09/18 Tamsulosin Hcl* (Tamsulosin Hcl*) 0.4 Mg Cap.er.24h, 0.4 MG PO HS, CAP 05/09/18 Current Medications IV Flush (NS 3 ml) 3 ml PER PROTOCOL IV ; Start 05/09/18 at 19:30 Ondansetron HCl (Zofran Inj) 4 mg Q6H PRN IV NAUSEA/VOMITING Last administered on 05/13/18at 11:06; Admin Dose 4 MG; Start 05/09/18 at 19:30 Acetaminophen (Tylenol Tab) 650 mg Q6H PRN PO .PAIN 1-3 OR TEMP Last adm inistered on 05/14/18at 09:12; Admin Dose 650 MG; Start 05/09/18 at 19:30 Amlodipine Besylate (Norvasc) 10 mg DAILY PO Last administered on 05/14/18at 08:58; Admin Dose 10 MG; Start 05/10/18 at 09:00 Aspirin (Halfprin) 81 mg DAILY PO Last administered on 05/14/18at 08:58; Admin Dose 81 MG; Start 05/10/18 at 09:00 Tamsulosin HCl (Flomax) 0.4 mg HS PO Last administered on 05/14/18at 20:56; Admin Dose 0.4 MG; Start 05/09/18 at 21:00 Hydralazine HCl (Apresoline) 10 mg Q4H PRN IV SBP>190 Last administered on 05/10/18at 08:30; Admin Dose 10 MG; Start 05/09/18 at 19:30 Atorvastatin Calcium (Lipitor) 40 mg DAILY@21 PO Last administered on 05/14/18at 20:56; Admin Dose 40 MG; Start 05/09/18 at 21:00 Hydralazine HCl (Apresoline) 100 mg Q8 PO Last administered on 05/14/18at 21:55; Admin Dose 100 MG; Start 05/11/18 at 14:00 Isosorbide Mononitrate (Ismo) 40 mg DAILY PO Last administered on 05/14/18at 08:58; Admin Dose 40 MG; Start 05/11/18 at 12:30 Hydralazine HCl (Apresoline) 10 mg Q4H PRN IV SBP more than 150 mmhg ; Start 05/12/18 at 09:30 Enoxaparin Sodium (Lovenox) 30 mg DAILY SC Last administered on 05/14/18at 09:10; Admin Dose 30 MG; Start 05/14/18 at 09:00 Meds reviewed: Yes Allergies Coded Allergies: No Known Allergy (Unverified , 05/09/18) Allergies Reviewed: Yes Labs/Studies Labs Reviewed: Reviewed by anesthesiologist Result Diagram: 05/15/18 0559 05/15/1859 Laboratory Tests 05/15/18 05:59 test: N/A Studies: ECG (Complete heart block RBBB), CXR (Cardiomegaly and atherosclerosis), 2D Echo (EF 65%) Pre-procedure Exam Last vitals Vital Signs Date Temp Pulse Resp B/P (MAP) Pulse Ox O2 O2 Flow FiO2 Time Delivery Rate 05/15/18 38 12:31 05/15/18 97.8 18 155/70 97 11:21 (98) 05/15/18 Nasal 2.0 07:20 Cannula Airway: Adequate mouth opening Mallampati: Mallampati II Teeth: Normal Lung: Normal Heart: Normal ASA Physical Status ASA physical status: 3 Emergency: None Planned Anesthetic General/MAC: MAC Pre-operative Attestations Prior to commencing anesthesia and surgery, the patient was re-evaluated, there was verification of: *The patient's identity *The results of appropriate recent lab work and preoperative vital signs *The above evaluation not changing prior to induction *Anesthetic plan, risk benefits, alternative and complications discussed with patient/family; questions answered; patient/family understands, accepts and wishes to proceed. MARGARET GLYNN May 15, 2018 13:21
--- NOTE | 2018-05-15 13:53 | CONS ---
Assessment/Plan Assessment/Plan Hospital Course (Demo Recall) IMPRESSION: 1. Heart block with a subsequent likely symptomatic bradycardia with episodes of 2:1 atrioventricular block and then additionally likely associated complete heart block at times as well with likely junctional escape rhythm around 50 to the 40s.-remains unchganged 2. Shortness of breath, dyspnea on exertion, likely due to chronotropic incompetence and heart block. NLl EF by echo 60-65% 3. Chest pain, assess for acute coronary syndrome.-resolved. Neg trop x 3 4. Hypertension-mildly elevated 5. Benign prostatic hypertrophy. 6. Elevated BNP. Assess for congestive heart failure. 7. Anemia. 8. ARF-likley due to overdiuresis but now worsening with lasix d/c'd Recc: -Tele -Follow HR closely. No reyna agents -Resume anti hypertensives after PPM placement -renal now following -Continue asa/statin -For PPM implant today Consultation Date/Type/Reason Admit Date/Time May 09, 2018 at 18:42 Initial Consult Date 05/09/18 Type of Consult Cardiology Reason for Consultation Heart block Requesting Provider: KAYLAN GOMEZ MD Date/Time of Note DATE: 05/15/18 TIME: 13:51 Exam/Review of Systems Vital Signs Vitals Vital Signs Date Temp Pulse Resp B/P (MAP) Pulse Ox O2 O2 Flow FiO2 Time Delivery Rate 05/15/18 38 12:31 05/15/18 142/66 12:30 (91) 05/15/18 97.8 18 97 11:21 05/15/18 Nasal 2.0 07:20 Cannula Intake and Output 05/14/18 05/14/18 05/15/18 1515:00 23:00 07:00 IntakeIntake Total 640 ml BalanceBalance 640 ml Exam Exam Review of Systems: CONSTITUTIONAL: No fevers, chills. PULMONARY: No sob CARDIOVASCULAR: No chest pain/palpitations GASTROINTESTINAL: No nausea/vomiting. GENITOURINARY: No hematuria/dysuria. MUSCULOSKELETAL: No myagias/arthalgias. PSYCHIATRIC: The patient denies depression. NEUROLOGIC: No weakness Constitutional: alert Psych: no complaints Head: normocephalic ENMT: mucosa pink and moist Neck: supple Respiratory: diminished breath sounds Cardiovascular: regular rate and rhythm Gastrointestinal: non-tender Musculoskeletal: muscle tone (normal) Extremities: edema (none) 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: other (No focal deficits) Labs Result Diagram: 05/15/18 0559 05/15/18 0559 Results 24hrs Laboratory Tests Test 05/15/18 05:59 05/15/18 12:50 White Blood Count 5.0 Red Blood Count 3.33 L Hemoglobin 10.6 L Hematocrit 30.0 L Mean Corpuscular Volume 90.1 Mean Corpuscular Hemoglobin 31.8 Mean Corpuscular Hemoglobin Concent 35.3 Red Cell Distribution Width 13.0 Platelet Count 226 Mean Platelet Volume 10.4 Immature Granulocytes % 0.400 Neutrophils % 72.9 Lymphocytes % 16.6 Monocytes % 7.1 Eosinophils % 2.6 Basophils % 0.4 Nucleated Red Blood Cells % 0.0 Immature Granulocytes # 0.020 Neutrophils # 3.6 Lymphocytes # 0.8 Monocytes # 0.4 Eosinophils # 0.1 Basophils # 0.0 Nucleated Red Blood Cells # 0.0 Sodium Level 127 L Potassium Level 4.0 Chloride Level 91 L Carbon Dioxide Level 23 Anion Gap 13 Blood Urea Nitrogen 61 H Creatinine 2.41 H Est Glomerular Filtrat Rate mL/min Glucose Level 166 Calcium Level 8.3 L Lab Scanned Report REFERENCE LAB Medications Medications Current Medications IV Flush (NS 3 ml) 3 ml PER PROTOCOL IV ; Start 05/09/18 at 19:30 Ondansetron HCl (Zofran Inj) 4 mg Q6H PRN IV NAUSEA/VOMITING Last administered on 05/13/18at 11:06; Admin Dose 4 MG; Start 05/09/18 at 19:30 Acetaminophen (Tylenol Tab) 650 mg Q6H PRN PO .PAIN 1-3 OR TEMP Last administered on 05/14/18 09:12; Admin Dose 650 MG; Start 05/09/18 at 19:30 Amlodipine Besylate (Norvasc) 10 mg DAILY PO Last administered on 05/14/18 08:58; Admin Dose 10 MG; Start 05/10/18 at 09:00 Aspirin (Halfprin) 81 mg DAILY PO Last administered on 05/14/18 08:58; Admin Dose 81 MG; Start 05/10/18 at 09:00 Tamsulosin HCl (Flomax) 0.4 mg HS PO Last administered on 05/14/18 20:56; Admin Dose 0.4 MG; Start 05/09/18 at 21:00 Hydralazine HCl (Apresoline) 10 mg Q4H PRN IV SBP>190 Last administered on 05/10/18 08:30; Admin Dose 10 MG; Start 05/09/18 at 19:30 Atorvastatin Calcium (Lipitor) 40 mg DAILY@21 PO Last administered on 05/14/18 20:56; Admin Dose 40 MG; Start 05/09/18 at 21:00 Hydralazine HCl (Apresoline) 100 mg Q8 PO Last administered on 05/14/18at 21:55; Admin Dose 100 MG; Start 05/11/18 at 14:00 Isosorbide Mononitrate (Ismo) 40 mg DAILY PO Last administered on 05/14/18 08:58; Admin Dose 40 MG; Start 05/11/18 at 12:30 Hydralazine HCl (Apresoline) 10 mg Q4H PRN IV SBP more than 150 mmhg ; Start 05/12/18 at 09:30 Enoxaparin Sodium (Lovenox) 30 mg DAILY SC Last administered on 05/14/18at 09:10; Admin Dose 30 MG; Start 05/14/18 at 09:00 KAYLAN ARGUETA May 15, 2018 13:53
[2018-05-15] MEDS ORDERED: POLYMYXIN/BACITRACIN 1L IRRIG IRR SCH (14:30)
[2018-05-15] MEDS ORDERED: LIDOCAINE 1%/EPI (1:100,000) (MDV) 20 ML ONE (14:30)
[2018-05-15] MEDS ORDERED: CEFAZOLIN 2 GM/50 ML (PMX) 50 ML IVPB SCH (14:30)
[2018-05-15] MEDS ORDERED: FENTAnyl 50 MCG/ML VIAL ONE (14:47)
[2018-05-15] MEDS ORDERED: MIDAZOLAM 1 MG/ML 2 ML INJ ONE (14:48)
[2018-05-15] MEDS ORDERED: PROPOFOL 20 ML ONE (14:48)
--- NOTE | 2018-05-15 15:45 | SIPON ---
Date/Time of Note Date/Time of Note DATE: 05/15/18 TIME: 15:44 Operative Report Preoperative Diagnosis [facility], [facility] [facility] DDD at 60 # [id number] Postoperative Diagnosis same Operation/Procedure Performed DDD pacer implant Surgeon see signature line assistant field hockey coach none Anesthesia: MAC Estimated blood loss: minimal Transfusion Required none Specimen none Grafts/Implants none Complications none YARI BARAHONA MD May 15, 2018 15:45
[2018-05-15] MEDS ORDERED: morphine 2 MG INJ IV PRN (16:00)
--- NOTE | 2018-05-15 16:44 | PAC ---
Date/Time of Note Date/Time of Note DATE: 05/15/18 TIME: 16:43 Post-Anesthesia Notes Post-Anesthesia Note Last documented vital signs Vital Signs Date Temp Pulse Resp B/P (MAP) Pulse Ox O2 O2 Flow FiO2 Time Delivery Rate 05/15/18 63 16:28 05/15/18 98.2 68 29 140/57 93 16:09 (84) 05/15/18 98.0 15:54 05/15/18 Nasal 2.0 07:20 Cannula Activity: WNL Respiratory function: WNL Cardiovascular function: WNL Mental status: Baseline Pain reasonably controlled: Yes Hydration appropriate: Yes Nausea/Vomiting absent: No NEREIDA KENDALL MD May 15, 2018 16:44
--- NOTE | 2018-05-15 17:09 | CARRPT ---
DATE OF PROCEDURE: 05/15/2018 REFERRING PHYSICIAN: Kaylan Copeland MD REASON FOR IMPLANTATION: Complete heart block, symptomatic bradycardia. OPERATIONS PERFORMED: 1. Dual chamber pacemaker implantation. Indication for atrial lead is required for AV synchrony in an active patient who will benefit from a synchronous AV pacing. 2. Fluoroscopy interpretation. 3. Upper extremity venogram. IMPLANTED DEVICE INFORMATION: MRI Pacemaker [employer] Assurity MRI 2272, serial number [id number] 2. Right atrial lead is [employer] Tendril 2088TC 52 cm lead, serial number [id number]. RV chapin d is [employer] Tendril MRI lead LPA 1200, 58 cm lead, serial number [id number]. Thresholds: A trial threshold is 3.4 millivolts, lead impedance 410 ohms, capture 0.7 volts at 0.4 msec. Ventricul ar lead had no sensed P-wave. The patient is pacemaker dependent and at this point, lead impedance o f 60 ohms, threshold 0.5 volts at 0.4 msec with the initial setting is VVI 60. The patient is in a f ast atrial rhythm and sinus tachycardia with . For now, the device was put in the DDR leads ini tiated, the patient has some degree of beta emelia and then reprogrammed to DDD as he is heading tow ards the discharge. DESCRIPTION OF PROCEDURE: The informed consent was obtained. The patient was brought into heart sta tion in fasting condition. Anesthesiologist supervised airway and sedation. Ancef was given prior t o procedure. The left side of the chest was prepped and draped in sterile fashion. A 1% lidocaine w as used for local anesthesia. Using #10 scalpel, a 3 cm incision was made. Using cautery and blunt dissection, the pocket was created. Upper extremity venogram was performed to assess patency. Using modified Seldinger technique, subclavian was cannulated and J-wire passed easily. Using double spli t sheath technique, 2 J-wires were deposited into the vein. Using #8-Latvian sheath was advanced and navigated the RV lead to RV apex. A lead was actively fixed into the apex. Some slack was left insi de the lead and the sheath was pulled away. The lead was sutured to the muscle layer with 0 Ethibond sutures. This similar technique was used with a 6-Latvian sheath for the atrial lead. Atrial lead w as navigated into the appendage with J-tip stylet. It was actively fixed. Sheath was pulled away. The lead was sutured to the muscle layer with 0 Ethibond sutures. The leads were attached to the gen erator. The pocket was irrigated with antibiotic solution. Dressing was placed inside the pocket. The skin was closed with multiple layers of 2-0 Vicryl sutures. Steri-Strips were applied on top of the incision. The patient appears to have tolerated the procedure well. The plan is for him to be m onitored overnight, chest x-ray to rule out pneumothorax, continuous antibiotics and close followup. I would like to thank Dr. Copeland and Dr. Goddard for referring this patient for my evaluation. Dictated By: YARI BARAHONA MD ML/NTS Conf#: [id number] DID#: [id number] CC: KAYLAN GODDARD MD; KAYLAN COPELAND MD; JEROME EVERETT MD;*End*
[2018-05-15] MEDS ORDERED: CEFAZOLIN 1 GM INJ IM SCH (18:00)
[2018-05-15] MEDS: TAMSULOSIN (SR) 0.4 MG CAP PO SCH (21:28)
[2018-05-15] MEDS: ATORVASTATIN 40 MG TAB PO SCH (21:28)
[2018-05-15] MEDS: CEFAZOLIN 1 GM/50 ML (PMX) 50 ML IVPB SCH (21:29)
[2018-05-15] MEDS ORDERED: oxyCODONE 5 MG TAB PO PRN (21:30)
[2018-05-16] VITALS (10 sets, daily range): BP systolic 126–156; BP diastolic 58–69; PULSE 59–71; RESP 18–22
[2018-05-16] MEDS: CEFAZOLIN 1 GM/50 ML (PMX) 50 ML IVPB SCH ×2 (05:13→14:26)
[2018-05-16] MEDS: ENOXAPARIN 30 MG/0.3 ML SYG SC SCH (09:00)
[2018-05-16] MEDS: AMLODIPINE 10 MG TAB PO SCH (09:11)
[2018-05-16] MEDS: ASPIRIN (EC) 81 MG TAB PO SCH (09:11)
[2018-05-16] MEDS: ISOSORBIDE MONONITRATE 20 MG TAB PO SCH (09:11)
--- NOTE | 2018-05-16 10:10 | CONS ---
Assessment/Plan Assessment/Plan Assessment/Plan (Daily) 1. acute kidney injury possible due to Overdiuresis + nephrotoxicity 2. new onset CHF 3. Hyponatremia due to CHF 4. H/o HTN Plan: BUN/Cr improved to 55/1.38, Na improved to 134- S/p lasix 20mg IV x 1 yesterday, ok to d/c home with PO lasix 20mg BID x 1 month supply will evaluate him as outpatient for Losartan restart no HCTZ on discharge Renal US showed normal size kidneys, no hydronephrosis Amlodipine 10mg po daily, with Hydralazine 100mg pO Q 8 hr , IV hydralazine prn Follow up with me in clinic in 1 week after discharge will follow up Consultation Date/Type/Reason Admit Date/Time May 09, 2018 at 18:42 Initial Consult Date 05/12/18 Type of Consult NEPHROLOGY Requesting Provider: KAYLAN GOMEZ MD Date/Time of Note DATE: 05/16/18 TIME: 10:10 24 HR Interval Summary Free Text/Dictation doing better, BUN/Cr improved, BP stable, , s/p lasix 20mg iv x 1 yesterday Exam/Review of Systems Exam Vitals Vital Signs Date Temp Pulse Resp B/P (MAP) Pulse Ox O2 O2 Flow FiO2 Time Delivery Rate 05/16/18 66 08:00 05/16/18 97.9 22 156/68 96 Room Air 2.0 07:19 (97) Nasal Cannula Intake and Output 05/15/18 05/15/18 05/16/18 1515:00 23:00 07:00 IntakeIntake Total 450 ml BalanceBalance 450 ml Exam Constitutional: alert, awake Respiratory: clear to auscultation, diminished breath sounds Cardiovascular: regular rate and rhythm, nl pulses Gastrointestinal: soft, non-tender Musculoskeletal: muscle weakness 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: ICT SALES REPRESENTATIVE II-XII intact, nl mental status Results Result Diagram: 05/16/18 0606 05/16/18 0606 Results 24hrs Laboratory Tests Test 05/15/18 12:50 05/16/18 06:06 Lab Scanned Report REFERENCE LAB White Blood Count 5.6 Red Blood Count 3.48 L Hemoglobin 11.0 L Hematocrit 31.6 L Mean Corpuscular Volume 90.8 Mean Corpuscular Hemoglobin 31.6 Mean Corpuscular Hemoglobin Concent 34.8 Red Cell Distribution Width 12.9 Platelet Count 230 Mean Platelet Volume 10.0 Immature Granulocytes % 0.200 Neutrophils % 77.8 H Lymphocytes % 11.6 L Monocytes % 8.0 Eosinophils % 2.0 Basophils % 0.4 Nucleated Red Blood Cells % 0.0 Immature Granulocytes # 0.010 Neutrophils # 4.4 Lymphocytes # 0.7 L Monocytes # 0.5 Eosinophils # 0.1 Basophils # 0.0 Nucleated Red Blood Cells # 0.0 Sodium Level 134 L Potassium Level 4.1 Chloride Level 97 Carbon Dioxide Level 25 Anion Gap 12 Blood Urea Nitrogen 55 H Creatinine 1.38 #H Est Glomerular Filtrat Rate mL/min Glucose Level 170 Calcium Level 8.8 Medications Medication Current Medications IV Flush (NS 3 ml) 3 ml PER PROTOCOL IV ; Start 05/09/18 at 19:30 Ondansetron HCl (Zofran Inj) 4 mg Q6H PRN IV NAUSEA/VOMITING Last administered on 05/13/18 11:06; Admin Dose 4 MG; Start 05/09/18 at 19:30 Acetaminophen (Tylenol Tab) 650 mg Q6H PRN PO .PAIN 1-3 OR TEMP Last administered on 05/14/18 09:12; Admin Dose 650 MG; Start 05/09/18 at 19:30 Amlodipine Besylate (Norvasc) 10 mg DAILY PO Last administered on 05/16/18 09:11; Admin Dose 10 MG; Start 05/10/18 at 09:00 Aspirin (Halfprin) 81 mg DAILY PO Last administered on 05/16/18 09:11; Admin Dose 81 MG; Start 05/10/18 at 09:00 Tamsulosin HCl (Flomax) 0.4 mg HS PO Last administered on 05/15/18 21:28; Admin Dose 0.4 MG; Start 05/09/18 at 21:00 Hydralazine HCl (Apresoline) 10 mg Q4H PRN IV SBP>190 Last administered on 05/10/18 08:30; Admin Dose 10 MG; Start 05/09/18 at 19:30 Atorvastatin Calcium (Lipitor) 40 mg DAILY@21 PO Last administered on 05/15/18 21:28; Admin Dose 40 MG; Start 05/09/18 at 21:00 Hydralazine HCl (Apresoline) 100 mg Q8 PO Last administered on 05/16/18 05:13; Admin Dose 100 MG; Start 05/11/18 at 14:00 Isosorbide Mononitrate (Ismo) 40 mg DAILY PO Last administered on 05/16/18at 09:11; Admin Dose 40 MG; Start 05/11/18 at 12:30 Hydralazine HCl (Apresoline) 10 mg Q4H PRN IV SBP more than 150 mmhg ; Start 05/12/18 at 09:30 Enoxaparin Sodium (Lovenox) 30 mg DAILY SC Last administered on 05/14/18at 09:10; Admin Dose 30 MG; Start 05/14/18 at 09:00 Morphine Sulfate (morphine) 2 mg Q2H PRN IV SEVERE PAIN LEVEL 7-10; Start 05/15/18 at 16:00 Cefazolin Sodium 50 ml @ 100 mls/hr Q8 IVPB Last administered on 05/16/18at 05:13; Admin Dose 100 MLS/HR; Start 05/15/18 at 22:00 Oxycodone HCl (Roxicodone) 5 mg Q4H PRN PO MODERATE PAIN LEVEL 4-6 Last administered on 05/15/18at 21:29; Admin Dose 5 MG; Start 05/15/18 at 21:30 SARBJIT BOLDEN MD May 16, 2018 10:10
--- NOTE | 2018-05-16 12:29 | CONS ---
Assessment/Plan Assessment/Plan Hospital Course (Demo Recall) IMPRESSION: 1. Heart block with a subsequent likely symptomatic bradycardia with episodes of 2:1 atrioventricular block and then additionally likely associated complete heart block at times as well with likely junctional escape rhythm around 50 to the 40s.-remains unchganged 2. Shortness of breath, dyspnea on exertion, likely due to chronotropic incompetence and heart block. NLl EF by echo 60-65% 3. Chest pain, assess for acute coronary syndrome.-resolved. Neg trop x 3 4. Hypertension-mildly elevated 5. Benign prostatic hypertrophy. 6. Elevated BNP. Assess for congestive heart failure. 7. Anemia. 8. ARF-likley due to overdiuresis. 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 No reyna agents -Contineu hydralazine/imdur/NOrvasc -renal following -Continue asa/statin -S/p PPM POD#1, v pacing for now until a rate decrased and then change to DD to have AV synchrony -abx prophylaxis x 5 days total with keflex 500 bid -outpatient f/u 10 days for wound check in my office Consultation Date/Type/Reason Admit Date/Time May 09, 2018 at 18:42 Initial Consult Date 05/09/18 Type of Consult Cardiology Reason for Consultation Heart Block Requesting Provider: KAYLAN GOMEZ MD Date/Time of Note DATE: 05/16/18 TIME: 12:26 Exam/Review of Systems Vital Signs Vitals Vital Signs Date Temp Pulse Resp B/P (MAP) Pulse Ox O2 O2 Flow FiO2 Time Delivery Rate 05/16/18 98.0 59 22 135/60 96 Nasal 2.0 11:29 (85) Cannula Intake and Output 05/15/18 05/15/18 05/16/18 1515:00 23:00 07:00 IntakeIntake Total 450 ml BalanceBalance 450 ml Exam Exam Review of Systems: CONSTITUTIONAL: No fevers, chills. PULMONARY: No sob CARDIOVASCULAR: No chest pain/palpitations GASTROINTESTINAL: No nausea/vomiting. GENITOURINARY: No hematuria/dysuria. MUSCULOSKELETAL: No myagias/arthalgias. PSYCHIATRIC: The patient denies depression. NEUROLOGIC: No weakness Constitutional: alert, oriented Psych: no complaints Head: normocephalic ENMT: mucosa pink and moist Neck: supple, jvd (8- 9 cm water) Respiratory: diminished breath sounds (at bases/B) Cardiovascular: regular rate and rhythm, other (L upper chest PPM covered by dressing. NO sig bleeding/swelling) Gastrointestinal: soft, non-tender Musculoskeletal: muscle tone (normal) Extremities: edema (trace/B) Labs Result Diagram: 05/16/18 0605/16/18 06 Results 24hrs Laboratory Tests Test 05/15/18 12:50 05/16/18 06:06 Lab Scanned Report REFERENCE LAB White Blood Count 5.6 Red Blood Count 3.48 L Hemoglobin 11.0 L Hematocrit 31.6 L Mean Corpuscular Volume 90.8 Mean Corpuscular Hemoglobin 31.6 Mean Corpuscular Hemoglobin Concent 34.8 Red Cell Distribution Width 12.9 Platelet Count 230 Mean Platelet Volume 10.0 Immature Granulocytes % 0.200 Neutrophils % 77.8 H Lymphocytes % 11.6 L Monocytes % 8.0 Eosinophils % 2.0 Basophils % 0.4 Nucleated Red Blood Cells % 0.0 Immature Granulocytes # 0.010 Neutrophils # 4.4 Lymphocytes # 0.7 L Monocytes # 0.5 Eosinophils # 0.1 Basophils # 0.0 Nucleated Red Blood Cells # 0.0 Sodium Level 134 L Potassium Level 4.1 Chloride Level 97 Carbon Dioxide Level 25 Anion Gap 12 Blood Urea Nitrogen 55 H Creatinine 1.38 #H Est Glomerular Filtrat Rate mL/min Glucose Level 170 Calcium Level 8.8 Medications Medications Current Medications IV Flush (NS 3 ml) 3 ml PER PROTOCOL IV ; Start 05/09/18 at 19:30 Ondansetron HCl (Zofran Inj) 4 mg Q6H PRN IV NAUSEA/VOMITING Last administered on 05/13/18at 11:06; Admin Dose 4 MG; Start 05/09/18 at 19:30 Acetaminophen (Tylenol Tab) 650 mg Q6H PRN PO .PAIN 1-3 OR TEMP Last administered on 05/14/18 09:12; Admin Dose 650 MG; Start 05/09/18 at 19:30 Amlodipine Besylate (Norvasc) 10 mg DAILY PO Last administered on 05/16/18 09:11; Admin Dose 10 MG; Start 05/10/18 at 09:00 Aspirin (Halfprin) 81 mg DAILY PO Last administered on 05/16/18 09:11; Admin Dose 81 MG; Start 05/10/18 at 09:00 Tamsulosin HCl (Flomax) 0.4 mg HS PO Last administered on 05/15/18 21:28; Admin Dose 0.4 MG; Start 05/09/18 at 21:00 Hydralazine HCl (Apresoline) 10 mg Q4H PRN IV SBP>190 Last administered on 05/10/18 08:30; Admin Dose 10 MG; Start 05/09/18 at 19:30 Atorvastatin Calcium (Lipitor) 40 mg DAILY@21 PO Last administered on 05/15/18 21:28; Admin Dose 40 MG; Start 05/09/18 at 21:00 Hydralazine HCl (Apresoline) 100 mg Q8 PO Last administered on 05/16/18 05:13; Admin Dose 100 MG; Start 05/11/18 at 14:00 Isosorbide Mononitrate (Ismo) 40 mg DAILY PO Last administered on 05/16/18 09:11; Admin Dose 40 MG; Start 05/11/18 at 12:30 Hydralazine HCl (Apresoline) 10 mg Q4H PRN IV SBP more than 150 mmhg ; Start 05/12/18 at 09:30 Enoxaparin Sodium (Lovenox) 30 mg DAILY SC Last administered on 05/14/18 09:10; Admin Dose 30 MG; Start 05/14/18 at 09:00 Morphine Sulfate (morphine) 2 mg Q2H PRN IV SEVERE PAIN LEVEL 7-10; Start 05/15/18 at 16:00 Cefazolin Sodium 50 ml @ 100 mls/hr Q8 IVPB Last administered on 05/16/18 05:13; Admin Dose 100 MLS/HR; Start 05/15/18 at 22:00 Oxycodone HCl (Roxicodone) 5 mg Q4H PRN PO MODERATE PAIN LEVEL 4-6 Last administered on 05/15/18 21:29; Admin Dose 5 MG; Start 05/15/18 at 21:30 KAYLAN ARGUETA May 16, 2018 12:29
[2018-05-16] MEDS ORDERED: ISM20 PO (12:41)
[2018-05-16] MEDS ORDERED: HYDR100T25 PO (12:41)
--- NOTE | 2018-05-16 12:44 | PN ---
DATE: 05/15/2018 SUBJECTIVE: Patient has no new complaints, spoke with [id number] at the bedside and the rest of the family, the patient is n.p.o. for pacemaker placement today. He has no new concerns. OBJECTIVE: GENERAL: Obese male, alert and oriented, no distress. He has oxygen and cannula in place. HEENT: Normocephalic and atraumatic. Pupils equal and reactive. NECK: Supple. CHEST: Clear to auscultation with diminished breath sounds bilaterally. CARDIOVASCULAR: S1 and S2, no murmurs, remains bradycardic. ABDOMEN: Obese, soft, nontender, nondistended. EXTREMITIES: No lower extremity edema. LABORATORY VALUES: Have been reviewed, and concerning was hyponatremia, but his creatinine levels ar e much improving, now down to 2.4, hemoglobin is stable and low. IMPRESSION: A 77-year-old male who is being managed for the followin. New onset congestive heart failure; now euvolemic. 2. Hypertension with good control. 3. Complete heart block for pacemaker placement today. 4. Dyspnea secondary to #1, improved. 5. Acute kidney injury secondary to over-diuresis. Likely acute tubular necrosis that is now on a d ownward trend. 6. Hyponatremia, likely secondary to reduced urinary output from ATN. I believe patient is planned for pulse dose diuresis today. DISPOSITION: For pacemaker placement today, follow up renal function in the morning, sodium levels a re improved and creatinine continues to do well. Patient will be discharged home in stable condition . Dictated By: JEROME EVERETT MD BA/NTS Conf#: [id number] DID#: [id number] CC: KAYLAN GOMEZ MD;*EndCC*
[2018-05-16] MEDS ORDERED: CEPH-443 PO (12:46)
--- NOTE | 2018-05-16 12:54 | DS ---
Date/Time of Note Date/Time of Note DATE: 05/16/18 TIME: 12:41 Discharge Summary Admission/Discharge Info Admit Date/Time May 09, 2018 at 18:42 Discharge Date/Time Discharge Diagnosis 77 yo man history of HTN presents with dyspnea, new onset CHF and complete heart block. #New onset CHF: Now euvolemic s/p diuresis. lasix d/akshat -echo 60-65%, no wall motion abnormalities #HTN: Controlled #Dyspnea: Resolved #ARPITA: Improved #Complete heart block : Status post permanent pacemaker placement May 15, 2018 #hyponatremia: improved #Erectile dysfunction: Patient advised no longer to use Viagra since he's been started on nitrates . Patient Condition: Stable Consults Cardiology: Alberto Copeland MD EPS: Eb Ambriz : Nephrology: Bo Guzmán MD . Hospital Course This is a 77-year-old male who had presented to emergency roomWith dyspnea and was found to have complete heart block on EKG as well as new onset CHF. He was managed for the comorbidities as above. Due to required diuresis, patient however developed an acute renal insufficiency that took a few days to resolve. In interim he was monitored closely by cardiology for his heart block. He ruled out for an acute coronary syndrome and echo did not show any valvular abnormalities. Cardiology recommended pacemaker placement, after much convincing, the patient consented to the procedure. He underwent pacemaker placement May 15, 2018 and tolerated without incident. At this point his renal function is much improved, he is been cleared from both cardiology and nephrology for discharge. He will be discharged home to continue follow-up as outpatient with his primary care doctor and above specialists. Other comorbidities were also managed per medical records, for further information or clarifications please review the patient's chart. . Home Meds Reported Medications Irbesartan-Hydrochlorothiazide (Irbesartan-Hydrochlorothiazide) 300-12.5 Mg Tab, 1 EACH PO DAILY, TAB 05/09/18 Amlodipine Besylate* (Amlodipine Besylate*) 10 Mg Tablet, 10 MG PO DAILY, #30 TAB 05/09/18 Sildenafil Citrate* (Viagra*) 25 Mg Tablet, 25 MG PO DAILY, TAB TAKE 1 TAB DAILY 1HOUR BEFORE NEEDED 05/09/18 Rosuvastatin Calcium* (Crestor*) 10 Mg Tablet, 10 MG PO QHS, #30 TAB 05/09/18 Aspirin* (Aspirin* EC) 81 Mg Tablet.dr, 81 MG PO DAILY, TAB 05/09/18 Tamsulosin Hcl* (Tamsulosin Hcl*) 0.4 Mg Cap.er.24h, 0.4 MG PO HS, CAP 05/09/18 Follow-up Plan 1. Follow-up with a aircraft magneto mechanic using the information below to make an appointment. He would like to see you in 10 days for wound check. Please followup with Dr Copeland for cardiology Name, Degree: Alberto Copeland MD Specialty: Cardiology Comments: Office Address: [address] [place] [address] Office Office Computational Theory Scientist: [employer] 2. You cannot use your Viagra pill anymore. You have been started on another drug for your heart that is contraindicated to use with Viagra 3. Also Followup with your primary doctor within the next 1-2 weeks. 4. You also need to call the windows vmware administrator, Dr. Monique Guzmán, to arrange for follow- up and monitoring of your kidney function. Please follow-up with Dr. Guzmán for your kidney problems. Name, Degree: Bo Guzmán MD Specialty: Nephrology Comments: Office Address: [address] [place] [id number] Office Office 5. Review your medication list with your nurse before leaving and if you need new prescriptions please let your nurse know. 6. I may have made changes to your home medications or given you new prescriptions, please let your primary doctor know as well. 7. Stay compliant with your medications and report any side effects to your PCP or pharmacist. 8. Return to the ER if you have any concerns and cannot reach your doctors or call your insurance company, they usually have a nurse that can help you. 1. Seguimiento con un cardilogo utilizando la siguiente informacin para concertar marry anisa. Le bonnieara verle en 10 bates para el chequeo de heridas. Por favor, seguimiento con el Dr. Copeland para Cardiologa Nombre, carol: Alberto Copeland MD Especialidad: Cardiologa Oficina direccin: [id number] [place] [address] Telfono de la oficina: [phone] Oficina Gerente de oficina: [employer] [place] 2. Ya no puedes usar tu pldora de Viagra. Usted reed sido comenzado en otro medicamento para el corazn que est contraindicado para tam uso con Viagra 3. Tambin seguimiento con tam mdico de cabecera en las prximas 1-2 semanas. 4. Tambin debe llamar al nefrlogo, Dr. Monique Guzmán, para organizar el seguimiento y monitoreo de tam funcin renal. Por favor, nora un seguimiento con el Dr. Guzmán para palmira problemas renales. Nombre, carol: Bo Guzmán MD Especialidad: Nefrologa comentarios: Oficina direccin: [id number] [facility] [address] [place] [address] telfono de la oficina: Oficina 5. Revise tam lista de medicamentos con tam enfermera antes de irse y si necesita nuevas recetas, por favor, tire a conocer a tam enfermera. 6. Usted puede ebnitez hecho cambios en palmira chemo caseros o dadas nuevas prescripciones, por favor tire para conocer tam GP tambin. 7. Cumpla con palmira medicamentos e informe de cualquier efecto secundario a tam PCP o farmacutico. 8. Regrese a la ER si tiene alguna inquietud y no puede comunicarse con palmira doctores o llamar a tam compaa de seguros, usualmente tiene marry enfermera que puede ayudarlo. . Primary Care Provider Not On Staff Doctor Time spent on discharge: > 30 minutes Pending Labs Laboratory Tests Test 05/15/18 12:50 05/16/18 06:06 Lab Scanned Report REFERENCE LAB [id number] White Blood Count 5.6 10^3/ul (4.8-10.8) Red Blood Count 3.48 10^6/ul (4.70-6.10) Hemoglobin 11.0 g/dl (14.0-18.0) Hematocrit 31.6 % (42.0-52.0) Mean Corpuscular Volume 90.8 fl (82.0-101.0) Mean Corpuscular Hemoglobin 31.6 pg (29.0-33.0) Mean Corpuscular 34.8 g/dl (32.0-37.0) Hemoglobin Concent Red Cell Distribution Width 12.9 % (11.5-14.5) Platelet Count 230 10^3/UL (140-415) Mean Platelet Volume 10.0 fl (7.4-10.4) Immature Granulocytes % 0.200 % (0.001-0.429) Neutrophils % 77.8 % (39.0-77.0) Lymphocytes % 11.6 % (15.0-51.0) Monocytes % 8.0 % (0.0-11.0) Eosinophils % 2.0 % (0.0-7.0) Basophils % 0.4 % (0.0-2.0) Nucleated Red Blood Cells % 0.0 /100WBC (0.0-0.0) Immature Granulocytes # 0.010 10^3/ul (0.0-0.031) Neutrophils # 4.4 10^3/ul (1.6-7.5) Lymphocytes # 0.7 10^3/ul (0.8-2.9) Monocytes # 0.5 10^3/ul (0.3-0.9) Eosinophils # 0.1 10^3/ul (0.0-0.5) Basophils # 0.0 10^3/ul (0.0-0.1) Nucleated Red Blood Cells # 0.0 10^3/ul (0.0-0.0) Sodium Level 134 mmol/L (135-144) Potassium Level 4.1 mmol/L (3.5-5.1) Chloride Level 97 mmol/L (97-110) Carbon Dioxide Level 25 mmol/L (21-31) Anion Gap 12 (5-13) Blood Urea Nitrogen 55 mg/dl (7-20) Creatinine 1.38 mg/dl (0.61-1.24) Est Glomerular Filtrat mL/min (>60) Rate mL/min Glucose Level 170 mg/dl (70-220) Calcium Level 8.8 mg/dl (8.4-10.2) JEROME EVERETT May 16, 2018 12:52
--- NOTE | 2018-05-16 12:54 | PDOCDIS ---
Discharge Instructions DIAGNOSIS Discharge Diagnosis 77 yo man history of HTN presents with dyspnea, new onset CHF and complete heart block. #New onset CHF: Now euvolemic s/p diuresis. lasix d/akshat -echo 60-65%, no wall motion abnormalities #HTN: Controlled #Dyspnea: Resolved #ARPITA: Improved #Complete heart block : Status post permanent pacemaker placement May 15, 2018 #hyponatremia: improved #Erectile dysfunction: Patient advised no longer to use Viagra since he's been started on nitrates . CONDITION [id number] Patient Condition: [id number] Stable HOME CARE INSTRUCTIONS: Zfaog0Lm Diet Instructions: Oowdx0o Low Fat /Cholesterol ACTIVITY: [id number] Activity Restrictions: Slehh6j Slowly Increase Activity Rest between Activity FOLLOW UP/APPOINTMENTS Follow-up Plan 1. Follow-up with a qlikview developer using the information below to make an appointment. He would like to see you in 10 days for wound check. Please followup with Dr Copeland for cardiology Name, Degree: Alberto Copeland MD Specialty: Cardiology Comments: Office Address: [address] [place] [address] Office Office Front Desk Supervisor: Little Pierson 2. You cannot use your Viagra pill anymore. You have been started on another drug for your heart that is contraindicated to use with Viagra 3. Also Followup with your primary doctor within the next 1-2 weeks. 4. You also need to call the practice advisor, Dr. Monique Guzmán, to arrange for follow- up and monitoring of your kidney function. Please follow-up with Dr. Guzmán for your kidney problems. Name, Degree: Bo Guzmán MD Specialty: Nephrology Comments: Office Address: [id number] [facility] [address] [place] [address] Office Office 5. Review your medication list with your nurse before leaving and if you need new prescriptions please let your nurse know. 6. I may have made changes to your home medications or given you new prescriptions, please let your primary doctor know as well. 7. Stay compliant with your medications and report any side effects to your PCP or pharmacist. 8. Return to the ER if you have any concerns and cannot reach your doctors or call your insurance company, they usually have a nurse that can help you. 1. Seguimiento con un cardilogo utilizando la siguiente informacin para concertar marry anisa. Elma mosley en 10 bates para el chequeo de heridas. Por favor, seguimiento con el Dr. Copeland para Cardiologa Nombre, carol: Alberto Copeland MD Especialidad: Cardiologa Oficina direccin: [id number] [place] [address] Telfono de la oficina: [phone] Oficina Gerente de oficina: Little Pierson 2. Ya no puedes usar tu pldora de Viagra. Usted reed sido comenzado en otro medicamento para el corazn que est contraindicado para tam uso con Viagra 3. Tambin seguimiento con tam mdico de cabecera en las prximas 1-2 semanas. 4. Tambin debe llamar al nefrlogo, Dr. Monique Guzmán, para organizar el seguimiento y monitoreo de tam funcin renal. Por favor, nora un seguimiento con el Dr. Guzmán para palmira problemas renales. Nombre, carol: Bo Guzmán MD Especialidad: Nefrologa comentarios: Oficina direccin: [id number] [facility] [address] [place] [address] telfono de la oficina: Oficina 5. Revise tam lista de medicamentos con tam enfermera antes de irse y si necesita nuevas recetas, por favor, tire a conocer a tam enfermera. 6. Usted puede benitez hecho cambios en palmira chemo caseros o dadas nuevas prescripciones, por favor tire para conocer tam GP tambin. 7. Cumpla con palmira medicamentos e informe de cualquier efecto secundario a tam PCP o farmacutico. 8. Regrese a la ER si tiene alguna inquietud y no puede comunicarse con palmira doctores o llamar a tam compaa de seguros, usualmente tiene marry enfermera que puede ayudarlo. . JEROME EVERETT May 16, 2018 12:54
== END 2018-05-16 17:00 | disposition home health service (06) | DRG 242 ==
LOC: E/R 15:15 → TEL 18:42
PROVIDERS: ADMIT Internal Medicine; ATTEND Family Medicine
PROC: 02H63JZ Insertion of Pacemaker Lead into Right Atrium, Percutaneous Approach (ICD-10-PCS; 2018-05-15)
PROC: 02HK3JZ Insertion of Pacemaker Lead into Right Ventricle, Percutaneous Approach (ICD-10-PCS; 2018-05-15)
PROC: 0JH606Z Insertion of Pacemaker, Dual Chamber into Chest Subcutaneous Tissue and Fascia, Open Approach (ICD-10-PCS; principal; 2018-05-15 14:30)
DX: I44.2 Atrioventricular block, complete (principal); I50.21 Acute systolic (congestive) heart failure; N17.9 Acute kidney failure, unspecified; E87.1 Hypo-osmolality and hyponatremia; I45.9 Conduction disorder, unspecified; I11.0 Hypertensive heart disease with heart failure; I16.0 Hypertensive urgency; E78.5 Hyperlipidemia, unspecified; N40.0 Benign prostatic hyperplasia without lower urinary tract symptoms; E11.9 Type 2 diabetes mellitus without complications
CPT/HCPCS: 36415; 71045; 76775; 80048; 80053; 80061; 81001; 81003; 82540; 82550; 82553; 82570; 82728; 82962; 83036; 83540; 83735; 83880; 84100; 84155; 84300; 84443; 84484; 84560; 85025; 85610; 85730; 90686; 93005; 93306; 96374; J0360; J0461; J0690; J1650; J1940; J2250; J2405; J3010; J7030